=== PATIENT | male | born 1945 | race Caucasian/White ===

== ENCOUNTER 2017-06-21 07:24 | Day surgery (SDC) | payer OTHER ==
[2017-06-21] MEDS ORDERED: D5 LR 1000 ML 1,000 ML IV ONE (07:36)
[2017-06-21] MEDS ORDERED: DIPRIVAN VIAL 20 ML ONE (09:38)
[2017-06-21 11:16] VITALS: BP 131/64
== END 2017-06-21 10:30 | disposition home or self-care (01) ==
LOC: SURG1 07:24
PROVIDERS: ATTEND Internal Medicine Gastroenterology
PROC: 0DB88ZX Excision of Small Intestine, Via Natural or Artificial Opening Endoscopic, Diagnostic (ICD-10-PCS; principal; 2017-06-21 13:00)
PROC: 0D757ZZ Dilation of Esophagus, Via Natural or Artificial Opening (ICD-10-PCS; principal; 2017-06-21 13:00)
PROC: 0DJ08ZZ Inspection of Upper Intestinal Tract, Via Natural or Artificial Opening Endoscopic (ICD-10-PCS; principal; 2017-06-21 13:00)
PROC: 0DB68ZX Excision of Stomach, Via Natural or Artificial Opening Endoscopic, Diagnostic (ICD-10-PCS; principal; 2017-06-21 13:00)
DX: R13.19 Other dysphagia (principal); R10.13 Epigastric pain; K21.9 Gastro-esophageal reflux disease without esophagitis; K25.9 Gastric ulcer, unspecified as acute or chronic, without hemorrhage or perforation; K20.8 Other esophagitis; K22.4 Dyskinesia of esophagus; K22.2 Esophageal obstruction
CPT/HCPCS: 99100; A4217; J3490; J7120

== ENCOUNTER 2017-11-22 09:18 | Day surgery (SDC) | payer OTHER ==
[2017-11-22] MEDS ORDERED: D5 LR 1000 ML 1,000 ML IV ONE (09:35)
[2017-11-22] MEDS ORDERED: DIPRIVAN VIAL 20 ML ONE (10:56)
[2017-11-22 13:16] VITALS: BP 142/79
== END 2017-11-22 11:30 | disposition home or self-care (01) ==
LOC: SURG1 09:18
PROVIDERS: ATTEND Internal Medicine Gastroenterology
PROC: 0DJ08ZZ Inspection of Upper Intestinal Tract, Via Natural or Artificial Opening Endoscopic (ICD-10-PCS; principal; 2017-11-22 13:30)
PROC: 0DB68ZX Excision of Stomach, Via Natural or Artificial Opening Endoscopic, Diagnostic (ICD-10-PCS; principal; 2017-11-22 13:30)
PROC: 0D757ZZ Dilation of Esophagus, Via Natural or Artificial Opening (ICD-10-PCS; principal; 2017-11-22 13:30)
DX: R13.19 Other dysphagia (principal); R10.13 Epigastric pain; K21.9 Gastro-esophageal reflux disease without esophagitis; K22.2 Esophageal obstruction; K22.4 Dyskinesia of esophagus; K29.60 Other gastritis without bleeding
CPT/HCPCS: 99100; A4217; J3490; J7120

== ENCOUNTER 2023-06-10 15:27 | Observation (INO) ==
--- NOTE | 2023-06-10 15:58 | EKG ---
Test Reason : elevated blood pressure, sob Blood Pressure : */* mmHG Vent. Rate : 80 BPM Atrial Rate : 80 BPM P-R Int : 174 ms QRS Dur : 98 ms QT Int : 396 ms P-R-T Axes : 50 39 3 degrees QTc Int : 456 ms Sinus rhythm with marked sinus arrhythmia with frequent and consecutive premature ventricular complex es Nonspecific T wave abnormality Abnormal ECG When compared with ECG of 02-DEC-2022 12:43, premature ventricular complexes are now present Vent. rate has increased BY 35 BPM Confirmed by Mario Bell (4) on 06/11/2023 8:04:47 AM Referred By: Confirmed By: Mario Bell
[2023-06-10] MEDS ORDERED: TYLENOL 500 MG TAB EXTRA STRENGTH PO ONE ×2 (16:00→16:17)
--- NOTE | 2023-06-10 16:15 | DR.WEAKNES ---
HPI Time Seen Time Seen by Provider: 06/10/23 15:50 Primary Care Physician Primary Care Physician: Narda Galindo Complaints Chief Complaint Doctors Comments: Patuient went to the grocery at 10:00am today and began bringing in groceries.Patient sat down outside. Son was told that he began to feel hot. Patient began to stare and did not move.ingot stripper were called to the house by a family member who went to visit and found patient. Patient's 02 sat was 89% RA and 2L 02 NC were applied. Patient denies:head injury,neck pain,back pain,chest pain,abdl pain,extremity weakness,extremity pain Chief Complaint:: EMS called out for AMS and generalized weakness. ON seen he had a oxygen sat of 89 and 2 L applied on nasal cannula, elevated blood pressure of 178/87 manually and enroute 194/86. Patient verbally responds and oriented times 3 and every few mins patient stops talking and holds a blank stare and responds after name is called. Source History Provided: Patient Mode of Arrival Mode of Arrival: EMS Timing Onset of Chief Complaint: 06/10/23 Symptom Onset: Unknown Context Stroke Symptoms: None PMH PMH Past Medical History: Yes Past Medical History: Coronary Artery Disease, Diabetes, Dyslipidemia, Hypert ension and MT Past Surgical History: Yes Surgical History: Ortho Surgery and Other Family History History of Family Medical Conditions: Yes Family Medical History: MT, Coronary Artery Disease, Sudden Cardiac and Hypertension Social History Does patient currently use any type of tobacco product: No Type of Tobacco Use: None Does any household member use tobacco: No Alcohol Use: None Do you use any recreational Drugs:: No Lives With: Spouse Lives Where: Home Travel Risk Coronavirus risk:travel/contact w/high risk person: Yes Has patient experienced Coronavirus symptoms: Yes Coronavirus symptoms experienced: Fever, Coughing and Shortness of Breath Infectious screening In the last 2 months have you had wt loss of >10#?: NO Have you had fever, night sweats or hemotysis?: No Have you traveled outside the country in the last 6 months?: No Isolation: Standard ROS Review of Systems Constitutional: No Symptoms Reported Eyes: No Symptoms Reported ENTM: No Symptoms Reported Respiratoy: Short of Breath Cardiovascular: negative Chest Pain Gastrointestinal/Abdominal: negative Abdominal Pain, Nausea or Vomiting Genitourinary: No Symptoms Reported Neurological: Weakness, Dizziness and Other (tremor left upper extremity); negative Headache Musculoskeletal: No Symptoms Reported Integumentary: No Symptoms Reported Hematologic/Lymphatic: No Symptoms Reported Endocrine: No Symptoms Reported Psychiatric: No Symptoms Reported All Other Systems: Reviewed and Negative Unable to Obtain Due To: Altered mental status PE Vital Signs Vitals: Vital Signs Temperature 98.1 F Temperature 99.9 F Pulse Rate 66 Pulse Rate 66 Pulse Rate 66 Pulse Rate 67 Pulse Rate 62 Pulse Rate 67 Pulse Rate 69 Pulse Rate 70 Pulse Rate 66 Pulse Rate 67 Pulse Rate 68 Pulse Rate 75 Pulse Rate 71 Pulse Rate 70 Pulse Rate 73 Pulse Rate 80 Pulse Rate 80 Pulse Rate 80 Pulse Rate 74 Pulse Rate 70 Pulse Rate 78 Respiratory Rate 19 Respiratory Rate 19 Respiratory Rate 19 Respiratory Rate 20 Respiratory Rate 18 Respiratory Rate 21 Respiratory Rate 19 Respiratory Rate 23 Respiratory Rate 22 Respiratory Rate 23 Respiratory Rate 21 Respiratory Rate 24 Respiratory Rate 31 Respiratory Rate 28 Respiratory Rate 45 Respiratory Rate 27 Respiratory Rate 19 Respiratory Rate 22 Respiratory Rate 23 Respiratory Rate 21 Respiratory Rate 23 Blood Pressure 169/80 Blood Pressure 181/75 Blood Pressure 171/74 Blood Pressure 171/74 Blood Pressure 175/75 Blood Pressure 192/83 Blood Pressure 209/94 Blood Pressure 213/95 Blood Pressure 194/84 O2 Sat by Pulse Oximetry 97 O2 Sat by Pulse Oximetry 92 O2 Sat by Pulse Oximetry 96 O2 Sat by Pulse Oximetry 97 O2 Sat by Pulse Oximetry 96 O2 Sat by Pulse Oximetry 98 O2 Sat by Pulse Oximetry 93 O2 Sat by Pulse Oximetry 96 O2 Sat by Pulse Oximetry 98 O2 Sat by Pulse Oximetry 100 O2 Sat by Pulse Oximetry 97 O2 Sat by Pulse Oximetry 96 O2 Sat by Pulse Oximetry 90 O2 Sat by Pulse Oximetry 95 O2 Sat by Pulse Oximetry 95 O2 Sat by Pulse Oximetry 96 O2 Sat by Pulse Oximetry 95 General Limitations: No Limitations General Appearance: Alert and In No Apparent Distress Head Head Exam: Normal Inspection Eyes Eye exam: Normal Appearance Eyelids: Normal Inspection: Bilateral Pupils: Regular, Round: Bilateral Sclera/Conjunctival: Normal Inspection: Bilateral Anterior Chamber: Normal Inspection: Bilateral ENT ENT Exam: Mucous Membranes Dry Mouth Exam: Normal Inspection Throat Exam: Normal Inspection Neck Neck Exam: Normal Inspection Chest Chest Inspection: Normal Inspection Respiratory Respiratory Exam: Normal Lung Sounds Bilat Respiratory Exam: Bilateral: Clear to Auscultation Cardiovascular Cardiovascular Exam: Regular Rate and Normal Rhythm Abdominal Exam Abdominal Exam: Normal Inspection, Normal Bowel Sounds and Soft Extremities Extremities Exam: Normal Inspection Back Back Exam: Normal Inspection Neurologic Neurological Exam: Alert and Oriented X3 Psychiatric Psychiatric Exam: Normal Affect and Normal Mood Skin Skin Exam: Warm, Dry, Intact and Normal Color MDM Differential Diagnosis Differential Diagnosis: CVA, DKA, Electrolyte Disorder, Mass Lesion, SAH and TIA COURSE Treatment Treatment: 16:40After Patient evaluated in a monitored room.Patient had bp 214/90's and was given hydralazine 10mg iv.16:57 He suddenly developed a HR 144 Afib and rapidly converted back to NSR. Patient has an 02sat 95-100% on 2L 02 per nasal cannula. Patient wilth EKG #1 sinus rhythm with nonspecific twave changes and frequent pvcs and troponin is 14.5. Patient's EKG #2 NSR nonspecific t wave changes and troponin #2 is 20.0. Discussed case with Dr Nguyen who has accepted patient to his service for treatment of: Altered mental Status,Hypoxia,Dehydration,Hypertensive emergency ROR Labs Reviewed Laboratory Results Reviewed?: Yes 06/10/23 16:36 06/10/23 16:36 Laboratory: WBC 10.3 X10^3/uL (3.6-10.0) H 06/10/23 16:36 RBC 4.42 X10^6/uL (4.7-6.0) L 06/10/23 16:36 Hgb 13.2 g/dL (13.5-18.0) L 06/10/23 16:36 Hct 39.0 % (42.0-54.0) L 06/10/23 16:36 MCV 88.3 fL (80.0-100.0) 06/10/23 16:36 MCH 29.8 pg (27.0-34.0) 06/10/23 16:36 MCHC 33.7 g/dL (33.0-35.0) 06/10/23 16:36 RDW 14.7 % (11.6-16.5) 06/10/23 16:36 Plt Count 119 X10^3/uL (150.0-450.0) L 06/10/23 16:36 MPV 8.8 fL (7.4-11.0) 06/10/23 16:36 Neut % (Auto) 88.7 % (42.0-75.0) H 06/10/23 16:36 Lymph % (Auto) 4.7 % (21.0-51.0) L 06/10/23 16:36 [place] % (Auto) 6.2 % (0.0-13.0) 06/10/23 16:36 Eos % (Auto) 0.2 % (0.9-2.9) L 06/10/23 16:36 Baso % (Auto) 0.2 % (0.2-1.0) 06/10/23 16:36 Neut # (Auto) 9.2 x10^3/uL (2.2-4.8) H 06/10/23 16:36 Lymph # (Auto) 0.5 X10^3/uL (1.3-2.9) L 06/10/23 16:36 [place] # (Auto) 0.6 x10^3/uL (0.3-0.8) 06/10/23 16:36 Eos # (Auto) 0.0 x10^3/uL (0.0-0.2) 06/10/23 16:36 Baso # (Auto) 0.0 X10^3/uL (0.0-0.1) 06/10/23 16:36 Absolute Nucleated RBC 0.0 /100WBC 06/10/23 16:36 Sodium 139 mmol/L (136-145) 06/10/23 16:36 Corrected Sodium 139 mmol/L (136-145) 06/10/23 16:36 Potassium 3.7 mmol/L (3.5-5.1) 06/10/23 16:36 Chloride 103 mmol/L (98-107) 06/10/23 16:36 Carbon Dioxide 26.0 mmol/L (21-32) 06/10/23 16:36 BUN 20 mg/dL (7-18) H 06/10/23 16:36 Creatinine 1.42 mg/dL (0.70-1.30) H 06/10/23 16:36 Est GFR (MDRD) Af Amer > 60 (>60) 06/10/23 16:36 Est GFR (MDRD) Non-Af 51 (>60) L 06/10/23 16:36 Glucose 111 mg/dL (65-99) H 06/10/23 16:36 Lactic Acid 1.1 mmol/L (0.4-2.0) 06/10/23 16:36 Calcium 9.3 mg/dL (8.5-10.1) 06/10/23 16:36 Corrected Calcium TNP 06/10/23 16:36 Total Bilirubin 1.40 mg/dL (0.2-1.0) H 06/10/23 16:36 AST 18 Units/L (15-37) 06/10/23 16:36 ALT 10 Units/L (12-78) L 06/10/23 16:36 Alkaline Phosphatase 62 Units/L (46-116) 06/10/23 16:36 Creatine Kinase 50 Units/L (39-308) 06/10/23 16:36 Troponin I High Sens 20.0 ng/L (4.0-60.0) 06/10/23 19:00 C-Reactive Protein 53.00 mg/L (0-3.0) H 06/10/23 16:36 B-Natriuretic Peptide 760 pg/mL (0-79) H* 06/10/23 16:36 Total Protein 6.7 g/dL (6.4-8.2) 06/10/23 16:36 Albumin 3.9 g/dL (3.4-5.0) 06/10/23 16:36 Globulin 2.8 g/dL (2.5-4.5) 06/10/23 16:36 Albumin/Globulin Ratio 1.4 Ratio (1.1-2.1) 06/10/23 16:36 Amylase 24 Units/L (25-115) L 06/10/23 16:36 Lipase 31 Units/L (73-393) L 06/10/23 16:36 Specimen Type Clean catch urine 06/10/23 16:30 Urine Color Yellow (YELLOW) 06/10/23 16:30 Urine Appearance Clear (CLEAR) 06/10/23 16:30 Urine pH 6.0 (5.0 - 8.0) 06/10/23 16:30 Ur Specific [place] 1.015 (1.000-1.030) 06/10/23 16:30 Urine Protein 2+ (NEGATIVE) 06/10/23 16:30 Urine Glucose (UA) Negative (NEGATIVE) 06/10/23 16:30 Urine Ketones 2+ (NEGATIVE) 06/10/23 16:30 Urine Blood 2+ (NEGATIVE) 06/10/23 16:30 Urine Nitrite Negative (NEGATIVE) 06/10/23 16:30 Urine Bilirubin Negative (NEGATIVE) 06/10/23 16:30 Urine Urobilinogen Normal (NORMAL) 06/10/23 16:30 Ur Leukocyte Esterase Negative (NEGATIVE) 06/10/23 16:30 Urine RBC 0-2 /HPF (0-3) 06/10/23 16:30 Urine WBC None seen /HPF (0-5) 06/10/23 16:30 Ur Squamous Epith Cells Rare /HPF (NEGATIVE) 06/10/23 16:30 Urine Bacteria Trace /HPF (NEGATIVE) 06/10/23 16:30 Ur Culture Indicated? No/not indicated 06/10/23 16:30 SARS-CoV-2 (PCR) Negative (NEGATIVE) 06/10/23 16:30 Influenza Type A (PCR) Negative (NEGATIVE) 06/10/23 16:30 Influenza Type B (PCR) Negative (NEGATIVE) 06/10/23 16:30 RSV (PCR) Negative (NEGATIVE) 06/10/23 16:30 XRAY XRAY Interpreted by: Radiologist X-ray Results: HISTORY AMS, generalized weakness Altered mental status Noncontrast head CT examination. Comparison: [None]. Technique: Multiple axial images of the brain were obtained from the skull base to the vertex without administration of IV contrast. Findings: There is moderate sulcal and cisternal prominence as well as atherosclerotic change in the proximal intracranial carotid and vertebral arteries, which is not out of proportion to the patient's stated age. There is diffuse CT density alteration seen in the periventricular white matter of the high and mid-convexity, which is likely in the setting of small vessel disease and not out of proportion to the patient's stated age. There is no pathologic ventricular dilatation without evidence for hydrocephalus or herniation syndrome. No midline shift is evident. No acute intraparenchymal hemorrhage or mass can be identified. If there remains a strong concern for any intra-cranial neoplasm, then follow-up with CT or MR imaging of the brain would be more sensitive to exclude any intra-cranial mass lesion. No extra-axial fluid collections are seen. No alteration in the attenuation of the brain parenchyma can be identified to suggest acute or subacute ischemic change. However, if clinical symptoms are concerning for an acute CVA, then follow-up MRI with DWI sequencing is recommended. The extracranial structures [are unremarkable]. The sinuses and mastoids are clear. IMPRESSION: 1. No acute intracranial process or acute bleed identified. 2. Age-appropriate intra-cranial changes of advancing age. Electronically signed by: DELL WEEMS III (Jun 10, 2023 16:31:33) EKG Compared to prior EKG Dated: 06/10/23 Rate: 80 [place]: Normal Rhythm: PVCs (frequent PVC's) Block: AVB Opioid Opioid Risk Tool Age (Dannie box if 16-45): No History of Preadolescent Sexual Abuse: No Total: 0 Total Score Risk Category: Low Risk Copyright: [facility] predicting aberrant behaviors Discharge Plan Diagnosis Discharge Problem: Hypoxia, Hypertensive emergency, Acute dehydration, Altered mental status Discharge Plan Patient Disposition: ADMITTED INPATIENT Condition: Stable Prescriptions: No Action simvastatin 40 MG tablet 40 mg PO HS clonidine HCl 0.1 mg tablet 0.1 mg PO QDAY PRN bisoprolol-hydrochlorothiazide 10-6.25 mg tablet 1 tab PO QDAY aspirin [Aspir-81] 81 mg Tablet,Delayed Release (Dr/Ec) 81 mg PO DAILY metformin 500 mg tablet 500 mg PO BID Patient Comments: Patient stated he takes once a day donepezil [Aricept] 5 mg tablet 5 mg PO QDAY lisinopril 20 mg tablet 20 mg PO QDAY Patient Comments: Patient states he takes 10mg in am and 10mg HS potassium chloride 10 mEq tablet extended release 10 meq PO BID hydrocodone-acetaminophen 10-325 mg tablet 1 tab PO TID PRN terazosin 2 mg capsule 4 mg PO QDAY pantoprazole 40 mg tablet,delayed release (DR/EC) 40 mg PO QDAY gabapentin 300 mg capsule 600 mg PO DAILY hydrochlorothiazide 25 mg tablet 25 mg PO QDAY Health Concerns: Post Hospitalization: new medications and changes needed to prevent readmission or further decline. Pt educated and given instructions on all concerns. Plan of Treatment: Continue with present treatment and follow up plan. Pt is to keep follow up appointment as instructed and take medications as ordered. Orders to Discharge Patient Discharge Orders: Transfer (Routine); Ordered 06/10/23 Ordered By: Alexa Rm Follow ups/Referrals Follow ups/Referrals: ELA BENITO [Primary Care Provider] - 3 days Instructions Stand Alone Forms: Post Hospital Follow Up Care ADDITIONAL NOTES Additional Notes Additional Notes: EKG #2 HR 64 RHYTHM NSR nonspecific t wave changes
[2023-06-10] MEDS ORDERED: APRESOLINE INJ 20 MG VIAL IVP ONE (16:33)
--- NOTE | 2023-06-10 16:33 | CT ---
HISTORYAMS, generalized weaknessAltered mental statusNoncontrast head CT examination.Comparison: [None].Technique:Multiple axial images of the brain were obtained from the skull base to the vertex without administration of IV contrast.Findings: There is moderate sulcal and cisternal prominence as well as atherosclerotic change in the proximal intracranial carotid and vertebral arteries, which is not out of proportion to the patient's stated age. There is diffuse CT density alteration seen in the periventricular white matter of the high and mid-convexity, which is likely in the setting of small vessel disease and not out of proportion to the patient's stated age. There is no pathologic ventricular dilatation without evidence for hydrocephalus or herniation syndrome. No midline shift is evident. No acute intraparenchymal hemorrhage or mass can be identified. If there remains a strong concern for any intra-cranial neoplasm, then follow-up with CT or MR imaging of the brain would be more sensitive to exclude any intra-cranial mass lesion. No extra-axial fluid collections are seen. No alteration in the attenuation of the brain parenchyma can be identified to suggest acute or subacute ischemic change. However, if clinical symptoms are concerning for an acute CVA, then follow-up MRI with DWI sequencing is recommended. The extracranial structures [are unremarkable]. The sinuses and mastoids are clear.IMPRESSION:1. No acute intracranial process or acute bleed identified.2. Age-appropriate intra-cranial changes of advancing age.Electronically signed by: DELL WEEMS III (Jun 10, 2023 16:31:33)
[2023-06-10] MEDS ORDERED: APRESOLINE INJ 20 MG VIAL ONE (16:36)
[2023-06-10 16:48] LABS: BILIRUBIN,URINE NEGATIVE (NEGATIVE); BLOOD/HEMOGLOBIN,URINE 2+ (NEGATIVE); GLUCOSE, URINE NEGATIVE (NEGATIVE); KETONES,URINE 2+ (NEGATIVE); LEUKOCYTE ESTERASE ,URINE NEGATIVE (NEGATIVE); NITRITES,URINE NEGATIVE (NEGATIVE); PROTEIN,URINE 2+ (NEGATIVE); UROBILINOGEN,URINE NORMAL (NORMAL)
[2023-06-10 16:56] LABS: APPEARANCE,URINE CLEAR (CLEAR); BACTERIA,URINE TRACE /HPF (NEGATIVE); COLOR,URINE YELLOW (YELLOW); RBC,URINE 0-2 /HPF (0-3); SQUAMOUS EPITHELIAL CELL,UR RARE /HPF (NEGATIVE)
[2023-06-10 16:59] LABS: BASOPHILS % (AUTO) 0.2 % (0.2-1.0); EOSINOPHILS % (AUTO) 0.2 % (0.9-2.9); HEMOGLOBIN 13.2 g/dL (13.5-18.0); LYMPHOCYTES # (AUTO) 0.5 X10^3/uL (1.3-2.9); LYMPHOCYTES % (AUTO) 4.7 % (21.0-51.0); MEAN CORPUSCULAR HEMOGLOBIN 29.8 pg (27.0-34.0); MEAN CORPUSCULAR HGB CONC 33.7 g/dL (33.0-35.0); MEAN CORPUSCULAR VOLUME 88.3 fL (80.0-100.0); MEAN PLATELET VOLUME 8.8 fL (7.4-11.0); MONOCYTES # (AUTO) 0.6 x10^3/uL (0.3-0.8); MONOCYTES % (AUTO) 6.2 % (0.0-13.0); NEUTROPHILS # (AUTO) 9.2 x10^3/uL (2.2-4.8); NEUTROPHILS % (AUTO) 88.7 % (42.0-75.0); PLATELET COUNT 119 X10^3/uL (150.0-450.0); RED BLOOD COUNT 4.42 X10^6/uL (4.7-6.0); RED CELL DISTRIBUTION WIDTH 14.7 % (11.6-16.5); WHITE BLOOD COUNT 10.3 X10^3/uL (3.6-10.0)
[2023-06-10 17:17] LABS: LACTIC ACID 1.1 mmol/L (0.4-2.0)
[2023-06-10 17:23] LABS: ALANINE AMINOTRANSFERASE 10 Units/L (12-78); ALBUMIN 3.9 g/dL (3.4-5.0); ALKALINE PHOSPHATASE 62 Units/L (46-116); AMYLASE 24 Units/L (25-115); ASPARTATE AMINO TRANSFERASE 18 Units/L (15-37); BLOOD UREA NITROGEN 20 mg/dL (7-18); CALCIUM 9.3 mg/dL (8.5-10.1); CHLORIDE 103 mmol/L (98-107); COR NA(FOR HYPERGLY) 139 mmol/L (136-145); CREATINE KINASE 50 Units/L (39-308); CREATININE 1.42 mg/dL (0.70-1.30); GLUCOSE 111 mg/dL (65-99); LIPASE 31 Units/L (73-393); POTASSIUM 3.7 mmol/L (3.5-5.1); SODIUM 139 mmol/L (136-145); TOTAL PROTEIN 6.7 g/dL (6.4-8.2); eGFR NON BLACK RACES 51 (>60)
--- NOTE | 2023-06-10 19:07 | EKG ---
Test Reason : altered mental status Blood Pressure : */* mmHG Vent. Rate : 64 BPM Atrial Rate : 64 BPM P-R Int : 170 ms QRS Dur : 108 ms QT Int : 422 ms P-R-T Axes : 66 36 14 degrees QTc Int : 435 ms Normal sinus rhythm Cannot rule out Anterior infarct , age undetermined Abnormal ECG When compared with ECG of 10-JUN-2023 15:55, (Unconfirmed) premature ventricular complexes are no longer present Confirmed by Mario Bell (4) on 06/11/2023 8:04:33 AM Referred By: Confirmed By: Mario Bell
--- NOTE | 2023-06-10 19:37 | RAD ---
HISTORYfeverSTUDYCHEST, 1 VIEWCOMPARISONFebruary 2022 and January 17, 2023TECHNIQUEChest radiographic imaging, AP portable projection, 1 imageFINDINGSNo cardiomegaly.Small left pleural effusion with adjacent airspace disease; as seen on the previous exams.No new focal airspace disease identified.No pneumothorax.No acute osseous abnormality.IMPRESSIONSmall left pleural effusion with adjacent airspace disease; as seen on the previous exams. No new focal airspace disease identified.Electronically signed by: Rashaun Frost (Jun 10, 2023 19:35:58)
[2023-06-10] MEDS ORDERED: CATAPRES TAB 0.1 MG PO PRN (20:18)
[2023-06-10] MEDS: MICRO K EXTEN CAP 10 MEQ PO SCH (21:59)
[2023-06-10] MEDS: NORCO 10/325 TAB PO PRN (22:00)
[2023-06-10] MEDS: ZOCOR TAB 40 MG PO SCH (22:00)
[2023-06-11 01:22] VITALS: BMI 28.0
[2023-06-11 06:14] LABS: BASOPHILS % (AUTO) 0.3 % (0.2-1.0); EOSINOPHILS % (AUTO) 0.2 % (0.9-2.9); HEMOGLOBIN 12.5 g/dL (13.5-18.0); LYMPHOCYTES # (AUTO) 0.7 X10^3/uL (1.3-2.9); LYMPHOCYTES % (AUTO) 7.2 % (21.0-51.0); MEAN CORPUSCULAR HEMOGLOBIN 29.8 pg (27.0-34.0); MEAN CORPUSCULAR HGB CONC 33.7 g/dL (33.0-35.0); MEAN CORPUSCULAR VOLUME 88.4 fL (80.0-100.0); MEAN PLATELET VOLUME 9.2 fL (7.4-11.0); MONOCYTES # (AUTO) 0.6 x10^3/uL (0.3-0.8); MONOCYTES % (AUTO) 6.6 % (0.0-13.0); NEUTROPHILS # (AUTO) 8.4 x10^3/uL (2.2-4.8); NEUTROPHILS % (AUTO) 85.7 % (42.0-75.0); PLATELET COUNT 114 X10^3/uL (150.0-450.0); RED BLOOD COUNT 4.18 X10^6/uL (4.7-6.0); RED CELL DISTRIBUTION WIDTH 14.5 % (11.6-16.5); WHITE BLOOD COUNT 9.8 X10^3/uL (3.6-10.0)
[2023-06-11 06:26] LABS: ALANINE AMINOTRANSFERASE 7 Units/L (12-78); ALBUMIN 3.1 g/dL (3.4-5.0); ALKALINE PHOSPHATASE 53 Units/L (46-116); ASPARTATE AMINO TRANSFERASE 19 Units/L (15-37); BLOOD UREA NITROGEN 18 mg/dL (7-18); CARBON DIOXIDE 26.6 mmol/L (21-32); CHLORIDE 104 mmol/L (98-107); COR CA(FOR HYPOALB) 9.7 mg/dL (8.5-10.1); CREATININE 1.23 mg/dL (0.70-1.30); GLUCOSE 100 mg/dL (65-99); POTASSIUM 3.6 mmol/L (3.5-5.1); SODIUM 139 mmol/L (136-145); TOTAL PROTEIN 5.9 g/dL (6.4-8.2); eGFR NON BLACK RACES > 60 (>60)
[2023-06-11] MEDS ORDERED: CONSULT PHARMACY - POTASSIUM & MAGNESIUM XX SCH ×2 (07:00)
[2023-06-11] MEDS ORDERED: ZESTRIL TAB 20 MG ONE (08:08)
[2023-06-11] MEDS: MAG-OX TAB PO SCH ×2 (08:20→09:39)
[2023-06-11] MEDS: PROTONIX TAB 40 MG PO SCH (08:20)
[2023-06-11] MEDS: HYDROCHLOROTHIAZIDE 25 MG TAB PO SCH (08:20)
[2023-06-11] MEDS: ASPIRIN EC 81 MG PO SCH (08:21)
[2023-06-11] MEDS: HYTRIN PO SCH (08:21)
[2023-06-11] MEDS: MICRO K EXTEN CAP 10 MEQ PO SCH ×2 (08:21→20:23)
[2023-06-11] MEDS: ARICEPT TAB 5 MG PO SCH (08:21)
[2023-06-11] MEDS: ZESTRIL TAB 20 MG PO SCH (08:22)
[2023-06-11] MEDS: ZEBETA TAB 5 MG PO SCH (08:22)
[2023-06-11] MEDS: NEURONTIN CAP 300 MG PO SCH (08:22)
[2023-06-11] MEDS ORDERED: K-DUR TAB 20 MEQ PO SCH (09:00)
[2023-06-11] MEDS: LOVENOX INJ 40 MG SYR SC SCH (10:38)
--- NOTE | 2023-06-11 13:42 | RAD ---
HISTORYPneumonia, altered mental statusSTUDYAP chest [id number] heart remains enlarged. The rebel are prominent and there is now indistinctness of the rebel with diffuse bilateral perihilar interstitial and some alveolar infiltrates most consistent with cardiogenic or noncardiogenic pulmonary edema. No definite pleural effusions are identified. Bony thorax is unremarkable.IMPRESSIONCardiomegaly with congestive heart failure in the form of pulmonary edema which could be cardiogenic or noncardiogenic in origin.Electronically signed by: GHASSAN ROWAN (Jun 11, 2023 13:41:33)
[2023-06-11] MEDS: ROCEPHIN VIAL 1 GRAM 1 G in NS 100 ML IV 100 ML IV SCH (13:43)
[2023-06-11] MEDS ORDERED: NS 1,000 ML IV 1,000 ML IV SCH (14:00)
[2023-06-11] MEDS: DUONEB 0.5 MG/3 MG (3 mL) NEB SCH ×2 (16:29→21:10)
[2023-06-11] MEDS: PULMICORT NEB TX 0.5 MG NEB SCH ×2 (16:31→21:10)
[2023-06-11] MEDS: LASIX IVP SCH (16:39)
[2023-06-11] MEDS: NORCO 10/325 TAB PO PRN (20:21)
[2023-06-11] MEDS: ZOCOR TAB 40 MG PO SCH (20:23)
--- NOTE | 2023-06-12 06:23 | RAD ---
HISTORYCongestive heart failureSTUDYChest AP [id number] t is enlarged. Previously noted congestive heart failure no longer present. No acute alveolar infiltrates are identified. Minimal left pleural effusion present. Bony thorax is unremarkable.IMPRESSIONCardiomegaly without congestive heart failure on today's examinationNo acute infiltratesMinimal left pleural effusionElectronically signed by: GHASSAN ROWAN (Jun 12, 2023 06:21:47)
[2023-06-12 06:37] LABS: BASOPHILS % (AUTO) 0.2 % (0.2-1.0); EOSINOPHILS % (AUTO) 0.5 % (0.9-2.9); HEMATOCRIT 38.6 % (42.0-54.0); LYMPHOCYTES # (AUTO) 0.7 X10^3/uL (1.3-2.9); LYMPHOCYTES % (AUTO) 8.9 % (21.0-51.0); MEAN CORPUSCULAR HEMOGLOBIN 29.6 pg (27.0-34.0); MEAN CORPUSCULAR HGB CONC 33.6 g/dL (33.0-35.0); MEAN CORPUSCULAR VOLUME 88.2 fL (80.0-100.0); MEAN PLATELET VOLUME 9.7 fL (7.4-11.0); MONOCYTES # (AUTO) 0.7 x10^3/uL (0.3-0.8); MONOCYTES % (AUTO) 9.2 % (0.0-13.0); NEUTROPHILS # (AUTO) 6.6 x10^3/uL (2.2-4.8); NEUTROPHILS % (AUTO) 81.2 % (42.0-75.0); PLATELET COUNT 123 X10^3/uL (150.0-450.0); RED BLOOD COUNT 4.38 X10^6/uL (4.7-6.0); RED CELL DISTRIBUTION WIDTH 14.6 % (11.6-16.5); WHITE BLOOD COUNT 8.1 X10^3/uL (3.6-10.0)
[2023-06-12 07:09] LABS: ALANINE AMINOTRANSFERASE 6 Units/L (12-78); ALBUMIN 3.4 g/dL (3.4-5.0); ALKALINE PHOSPHATASE 63 Units/L (46-116); ASPARTATE AMINO TRANSFERASE 13 Units/L (15-37); BLOOD UREA NITROGEN 21 mg/dL (7-18); CALCIUM 9.6 mg/dL (8.5-10.1); CARBON DIOXIDE 29.6 mmol/L (21-32); CHLORIDE 101 mmol/L (98-107); COR NA(FOR HYPERGLY) 141 mmol/L (136-145); CREATININE 1.49 mg/dL (0.70-1.30); GLUCOSE 127 mg/dL (65-99); POTASSIUM 3.1 mmol/L (3.5-5.1); SODIUM 140 mmol/L (136-145); TOTAL PROTEIN 6.7 g/dL (6.4-8.2); eGFR NON BLACK RACES 48 (>60)
[2023-06-12] MEDS ORDERED: ZESTRIL TAB 20 MG ONE (07:27)
[2023-06-12 07:58] VITALS: RESP 20
[2023-06-12] MEDS ORDERED: CONSULT PHARMACY - POTASSIUM & MAGNESIUM XX SCH (08:00)
[2023-06-12] MEDS: ROCEPHIN VIAL 1 GRAM 1 G in NS 100 ML IV 100 ML IV SCH (08:07)
[2023-06-12] MEDS: LASIX IVP SCH (08:08)
[2023-06-12] MEDS: LOVENOX INJ 40 MG SYR SC SCH (08:08)
[2023-06-12] MEDS: NEURONTIN CAP 300 MG PO SCH (08:09)
[2023-06-12] MEDS: ARICEPT TAB 5 MG PO SCH (08:09)
[2023-06-12] MEDS: MICRO K EXTEN CAP 10 MEQ PO SCH (08:09)
[2023-06-12] MEDS: PROTONIX TAB 40 MG PO SCH (08:10)
[2023-06-12] MEDS: ZEBETA TAB 5 MG PO SCH (08:10)
[2023-06-12] MEDS: HYDROCHLOROTHIAZIDE 25 MG TAB PO SCH (08:10)
[2023-06-12] MEDS: ASPIRIN EC 81 MG PO SCH (08:10)
[2023-06-12] MEDS: ZESTRIL TAB 20 MG PO SCH (08:10)
[2023-06-12] MEDS ORDERED: ROBITUSSIN DM PO PRN (08:47)
[2023-06-12] MEDS ORDERED: SOLU-Medrol 40 MG VIAL IVP ONE (08:47)
[2023-06-12] MEDS: DUONEB 0.5 MG/3 MG (3 mL) NEB SCH ×3 (09:12→12:21)
[2023-06-12] MEDS: PULMICORT NEB TX 0.5 MG NEB SCH (09:12)
[2023-06-12] MEDS: HYTRIN PO SCH (10:03)
[2023-06-12] MEDS: K-DUR TAB 20 MEQ PO SCH ×2 (12:00→13:13)
[2023-06-12] MEDS ORDERED: NS + KCL 20 MEQ/L 1,000 ML IV SCH (12:00)
[2023-06-12 12:05] VITALS: BP 122/59; PULSE 71; TEMP 99; O2SAT 95
[2023-06-12] MEDS ORDERED: K-DUR TAB 20 MEQ PO SCH (13:00)
== END 2023-06-12 13:50 | disposition home or self-care (01) ==
LOC: ER 15:27 → MED/SURG 15:27
PROVIDERS: ADMIT Family Medicine; ATTEND Internal Medicine

== ENCOUNTER 2025-01-01 21:17 | Inpatient (IN) ==
--- NOTE | 2025-01-01 21:37 | DR.ABDMALE ---
HPI Time seen Time Seen by Provider: 01/01/25 21:29 HPI comment HPI Comment: Patient complains of midepigastric pain that started prior to arrival. Patient states he has an extensive cardiac history with history of A- fib and blood clots for which she takes a blood thinner. Patient states he also has a history of a brain bleed. Denies any chest pain or diaphoresis at this time. Denies nausea vomiting diarrhea or constipation. Admits to dyspnea on exertion over the last few months. Source History provided by:: Patient, EMS PMH PMH Past Medical History: CHF, Coronary Artery Disease, Diabetes, Dyslipidemia, Hypertension and [place] Past Surgical History: Yes Surgical History: Angioplasty/Stents and Other Family History Family Medical History: [place], Coronary Artery Disease, Sudden Cardiac and Hypertension Social History Do you use any recreational Drugs:: No ROS Review of Systems Constitutional: No Symptoms Reported Eyes: No Symptoms Reported ENTM: No Symptoms Reported Respiratoy: Short of Breath; negative Non-Productive Cough or Wheezing Cardiovascular: See HPI and Other (Dyspnea on exertion); negative Chest Pain, Edema, Palpitations or Syncope Gastrointestinal/Abdominal: No Symptoms Reported Genitourinary: No Symptoms Reported Neurological: No Symptoms Reported Musculoskeletal: No Symptoms Reported Integumentary: No Symptoms Reported Hematologic/Lymphatic: No Symptoms Reported Endocrine: No Symptoms Reported Psychiatric: No Symptoms Reported All Other Systems: Reviewed and Negative PE Vital Signs Vital Signs: Temp Pulse Resp BP Pulse Ox O2 Del Method 01/02/25 00:16 142/65 01/02/25 00:16 98 H 42 H 01/02/25 00:15 103 H 42 H 01/02/25 00:02 159/74 01/02/25 00:02 107 H 43 H 01/02/25 00:00 102 H 43 H 01/01/25 23:30 201/116 01/01/25 23:30 98 H 36 H 94 L 01/01/25 23:16 202/118 01/01/25 23:16 92 H 37 H 95 01/01/25 23:15 92 H 36 H 01/01/25 23:01 199/89 01/01/25 23:01 92 H 35 H 89 L 01/01/25 23:00 98 H 31 H 90 L 01/01/25 22:46 95 H 28 H 83 L 01/01/25 22:46 217/104 01/01/25 22:46 217/104 01/01/25 22:45 96 H 30 H 85 L 01/01/25 22:31 95 H 41 H 90 L 01/01/25 22:31 210/109 01/01/25 22:30 90 33 H 84 L 01/01/25 22:15 213/101 01/01/25 22:15 96 H 34 H 94 L 01/01/25 22:10 102 H 38 H 88 L 01/01/25 22:10 198/95 01/02/25 01:33 20 01/01/25 22:54 20 01/01/25 22:17 18 01/01/25 22:17 22 01/01/25 22:04 94 H 36 H 01/01/25 22:04 208/112 01/01/25 21:45 206/118 01/01/25 21:45 94 H 31 H 95 01/01/25 21:32 208/117 01/01/25 21:32 93 H 37 H 98 01/01/25 21:32 97.6 F 98 H 20 138/113 97 Nasal Cannula General Limitations: No Limitations General Appearance: Alert and In No Apparent Distress Head Head Exam: Normal Inspection Eyes Eye exam: Normal Appearance ENT ENT Exam: Normal Exam Neck Neck Exam: Normal Inspection Chest Chest Inspection: Normal Inspection Respiratory Respiratory Exam: Other (Decreased breath sounds on lung bases bilaterally) Cardiovascular Cardiovascular Exam: Regular Rate and Normal Rhythm Abdominal Exam Abdominal Exam: Normal Inspection, Normal Bowel Sounds, Soft and Tenderness (Midepigastric tenderness); negative Distention, Guarding, Rebound or Rigidity Rectal Rectal Exam: Deferred Back Back Exam: Normal Inspection Extremeties Extremities Exam: Normal Inspection Exam: Male: Deferred Neurologic Neurological Exam: Alert and Oriented X3 Psychiatric Psychiatric Exam: Normal Affect and Normal Mood Skin Skin Exam: Warm, Dry, Intact and Normal Color COURSE Treatment Treatment: Patient's pain finally improved after 4 mg of morphine, Dilaudid and GERD medication. Discussed results of workup. Patient maintaining O2 sat on 2 L nasal cannula. At this point suspect referred pain from pneumonia and CHF exacerbation. Consultation Called: 02:26 Consultation Comments: Discussed case with Dr. Barrientos and she is agreeable to admission ROR Labs Reviewed 01/01/25 21:40 01/01/25 21:40 Laboratory: WBC 7.4 X10^3/uL (3.6-10.0) 01/01/25 21:40 RBC 4.62 X10^6/uL (4.7-6.0) L 01/01/25 21:40 Hgb 12.9 g/dL (13.5-18.0) L 01/01/25 21:40 Hct 39.1 % (42.0-54.0) L 01/01/25 21:40 MCV 84.7 fL (80.0-100.0) 01/01/25 21:40 MCH 28.0 pg (27.0-34.0) 01/01/25 21:40 MCHC 33.1 g/dL (33.0-35.0) 01/01/25 21: RDW 17.3 % (11.6-16.5) H 01/01/25 21:40 Plt Count 125 X10^3/uL (150.0-450.0) L 01/01/25 21: MPV 9.1 fL (7.4-11.0) 01/01/25 21:40 Neut % (Auto) 86.5 % (42.0-75.0) H 01/01/25 21:40 Lymph % (Auto) 8.2 % (21.0-51.0) L 01/01/25 21:40 [place] % (Auto) 5.0 % (0.0-13.0) 01/01/25 21:40 Eos % (Auto) 0.1 % (0.9-2.9) L 01/01/25: Baso % (Auto) 0.2 % (0.2-1.0) 01/01/25 21:40 Neut # (Auto) 6.4 x10^3/uL (2.2-4.8) H 01/01/25 21:40 Lymph # (Auto) 0.6 X10^3/uL (1.3-2.9) L 01/01/25 21:40 [place] # (Auto) 0.4 x10^3/uL (0.3-0.8) 01/01/25 21:40 Eos # (Auto) 0.0 x10^3/uL (0.0-0.2) 01/01/25 21:40 Baso # (Auto) 0.0 X10^3/uL (0.0-0.1) 01/01/25 21:40 Absolute Nucleated RBC 0.1 /100WBC 01/01/25 21:40 D-Dimer 1.73 ug/ml (0.0-0.57) H 01/01/25 21:40 Sodium 144 mmol/L (136-145) 01/01/25 21:40 Corrected Sodium 147 mmol/L (136-145) H 01/01/25 21:40 Potassium 3.7 mmol/L (3.5-5.1) 01/01/25 21:40 Chloride 105 mmol/L (98-107) 01/01/25 21:40 Carbon Dioxide 28.1 mmol/L (21-32) 01/01/25 21:40 BUN 23 mg/dL (7-18) H 01/01/25 21:40 Creatinine 1.31 mg/dL (0.70-1.30) H 01/01/25 21:40 Est GFR (MDRD) Af Amer > 60 (>60) 01/01/25 21:40 Est GFR (MDRD) Non-Af 56 (>60) L 01/01/25 21:40 Glucose 221 mg/dL (65-99) H 01/01/25 21:40 Calcium 10.6 mg/dL (8.5-10.1) H 01/01/25 21:40 Corrected Calcium TNP 01/01/25 21:40 Magnesium 1.8 mg/dL (2.0-2.9) L 01/01/25 21:40 Total Bilirubin 0.90 mg/dL (0.2-1.0) 01/01/25 21:40 AST 18 Units/L (15-37) 01/01/25 21:40 ALT 16 Units/L (12-78) 01/01/25 21:40 Alkaline Phosphatase 87 Units/L (46-116) 01/01/25 21:40 Alkaline Phosphatase 87 Units/L (46-116) 01/01/25 21:40 Creatine Kinase 64 Units/L (39-308) 01/01/25 21:40 Troponin I High Sens 12.2 ng/L (4.0-60.0) 01/02/25 00:18 B-Natriuretic Peptide 457 pg/mL (0-79) H 01/01/25 21:40 Total Protein 7.4 g/dL (6.4-8.2) 01/01/25 21:40 Albumin 4.2 g/dL (3.4-5.0) 01/01/25 21:40 Globulin 3.2 g/dL (2.5-4.5) 01/01/25 21: Albumin/Globulin Ratio 1.3 Ratio (1.1-2.1) 01/01/25 21:40 Amylase 30 Units/L (25-115) 01/01/25 21:40 Lipase 19 Units/L (16-77) 01/01/25 21:40 Specimen Type Clean catch urine 01/01/25 22: Urine Color Pale yellow (YELLOW) 01/01/25 22: Urine Appearance Clear (CLEAR) 01/01/25 22: Urine pH 6.5 (5.0 - 8.0) 01/01/25 22: Ur Specific [place] 1.010 (1.000-1.030) 01/01/25 22: Urine Protein 2+ (NEGATIVE) 01/01/25 22: Urine Glucose (UA) 3+ (NEGATIVE) 01/01/25 22: Urine Ketones Negative (NEGATIVE) 01/01/25: Urine Blood 3+ (NEGATIVE) 01/01/25: Urine Nitrite Negative (NEGATIVE) 01/01/25 22: Urine Bilirubin Negative (NEGATIVE) 01/01/25 22: Urine Urobilinogen Normal (NORMAL) 01/01/25: Ur Leukocyte Esterase Negative (NEGATIVE) 01/01/25 22: Urine RBC 0-2 /HPF (0-3) 01/01/25 22:05 Urine WBC None seen /HPF (0-5) 01/01/25 22: Ur Squamous Epith Cells Rare /HPF (NEGATIVE) 01/01/25 22: Urine Bacteria Negative /HPF (NEGATIVE) 01/01/25: Ur Culture Indicated? No/not indicated 01/01/25 22: Opioid Opioid Risk Tool Age (Dannie box if 16-45): No History of Preadolescent Sexual Abuse: No Total: 0 Total Score Risk Category: Low Risk Copyright: Von MONTOYA predicting aberrant behaviors Discharge Plan Diagnosis Discharge Problem: Acute exacerbation of CHF (congestive heart failure), Bilateral pneumonia Discharge Plan Patient Disposition: ADMITTED INPATIENT Condition: Stable Prescriptions: No Action hydrocodone-acetaminophen 10-325 mg tablet 1 tab PO TID PRN (Reason: pain) clonidine HCl 0.1 mg Tablet 0.1 mg PO DAILY PRN bisoprolol-hydrochlorothiazide 5-6.25 mg tablet 1 tab PO QDAY aspirin 81 mg Tablet,Chewable 81 mg PO QDAY cyclobenzaprine 10 mg Tablet 10 mg PO BID metformin 500 mg Tablet 500 mg PO QDAY furosemide 40 mg tablet 40 mg PO QAM donepezil 5 mg tablet 5 mg PO QDAY simvastatin 40 mg tablet 40 mg PO QPM terazosin 2 mg capsule 4 mg PO QDAY pantoprazole 40 mg tablet,delayed release (DR/EC) 40 mg PO QDAY lisinopril 10 mg tablet 10 mg PO QDAY potassium chloride 10 mEq tablet,ER particles/crystals 10 meq PO DAILY Health Concerns: Post Hospitalization: new medications and changes needed to prevent readmission or further decline. Pt educated and given instructions on all concerns. Plan of Treatment: Continue with present treatment and follow up plan. Pt is to keep follow up appointment as instructed and take medications as ordered. Orders to Discharge Patient Discharge Orders: Transfer (Routine); Ordered 01/02/25 Ordered By: Angel Last Follow ups/Referrals Follow ups/Referrals: [facility],None [STAFF PHYSICIAN] - 3 days Instructions Stand Alone Forms: Find Help Web Site, Post Hospital Follow Up Care
--- NOTE | 2025-01-01 21:43 | EKG ---
Test Reason : AFIB Blood Pressure : */* mmHG Vent. Rate : 91 BPM Atrial Rate : * BPM P-R Int : * ms QRS Dur : 98 ms QT Int : 370 ms P-R-T Axes : * 59 13 degrees QTc Int : 455 ms Atrial fibrillation with premature ventricular or aberrantly conducted complexes Incomplete right bundle branch block Possible Anterior infarct , age undetermined Abnormal ECG When compared with ECG of 15-APR-2024 14:31, Nonspecific T wave abnormality, worse in Inferior leads Nonspecific T wave abnormality now evident in Anterolateral leads Confirmed by Simon Marley MD ([id number]) on 01/02/2025 7:21:54 AM Referred By: Confirmed By: Simon Marley MD
[2025-01-01 22:07] LABS: BASOPHILS % (AUTO) 0.2 % (0.2-1.0); EOSINOPHILS % (AUTO) 0.1 % (0.9-2.9); HEMATOCRIT 39.1 % (42.0-54.0); HEMOGLOBIN 12.9 g/dL (13.5-18.0); LYMPHOCYTES # (AUTO) 0.6 X10^3/uL (1.3-2.9); LYMPHOCYTES % (AUTO) 8.2 % (21.0-51.0); MEAN CORPUSCULAR HGB CONC 33.1 g/dL (33.0-35.0); MEAN CORPUSCULAR VOLUME 84.7 fL (80.0-100.0); MEAN PLATELET VOLUME 9.1 fL (7.4-11.0); MONOCYTES # (AUTO) 0.4 x10^3/uL (0.3-0.8); NEUTROPHILS # (AUTO) 6.4 x10^3/uL (2.2-4.8); NEUTROPHILS % (AUTO) 86.5 % (42.0-75.0); PLATELET COUNT 125 X10^3/uL (150.0-450.0); RED BLOOD COUNT 4.62 X10^6/uL (4.7-6.0); RED CELL DISTRIBUTION WIDTH 17.3 % (11.6-16.5); WHITE BLOOD COUNT 7.4 X10^3/uL (3.6-10.0)
[2025-01-01] MEDS ORDERED: MORPHINE SULFATE INJ 2 MG INJ ONE (22:12)
[2025-01-01] MEDS: ZOFRAN INJ 4 MG VIAL IVP ONE (22:16)
[2025-01-01] MEDS: LEVSIN/MAALOX/LIDOC VISC PO ONE (22:17)
[2025-01-01] MEDS: MORPHINE SULFATE INJ 2 MG INJ IVP ONE ×2 (22:17→22:54)
[2025-01-01 22:18] LABS: ALANINE AMINOTRANSFERASE 16 Units/L (12-78); ALBUMIN 4.2 g/dL (3.4-5.0); ALKALINE PHOSPHATASE 87 Units/L (46-116); AMYLASE 30 Units/L (25-115); ASPARTATE AMINO TRANSFERASE 18 Units/L (15-37); BLOOD UREA NITROGEN 23 mg/dL (7-18); CALCIUM 10.6 mg/dL (8.5-10.1); CARBON DIOXIDE 28.1 mmol/L (21-32); CHLORIDE 105 mmol/L (98-107); COR NA(FOR HYPERGLY) 147 mmol/L (136-145); CREATINE KINASE 64 Units/L (39-308); CREATININE 1.31 mg/dL (0.70-1.30); GLUCOSE 221 mg/dL (65-99); LIPASE 19 Units/L (16-77); MAGNESIUM 1.8 mg/dL (2.0-2.9); POTASSIUM 3.7 mmol/L (3.5-5.1); SODIUM 144 mmol/L (136-145); TOTAL PROTEIN 7.4 g/dL (6.4-8.2); eGFR NON BLACK RACES 56 (>60)
[2025-01-01 22:29] LABS: BILIRUBIN,URINE NEGATIVE (NEGATIVE); BLOOD/HEMOGLOBIN,URINE 3+ (NEGATIVE); GLUCOSE, URINE 3+ (NEGATIVE); KETONES,URINE NEGATIVE (NEGATIVE); LEUKOCYTE ESTERASE ,URINE NEGATIVE (NEGATIVE); NITRITES,URINE NEGATIVE (NEGATIVE); PH,URINE 6.5 (5.0 - 8.0); PROTEIN,URINE 2+ (NEGATIVE); UROBILINOGEN,URINE NORMAL (NORMAL)
--- NOTE | 2025-01-01 22:42 | CT ---
CT ABDOMEN AND PELVIS WITHOUT CONTRASTHISTORY:Upper abdominal painCOMPARISON:01/15/2024TECHNIQUE:Axial images were obtained of the abdomen and pelvis without IV contrast. Sagittal and coronal reformatted images were provided. All images were reviewed in a variety of windows and levels.RADIATION REDUCTION TECHNIQUE: Automated exposure control, adjustment of the mA or kV according to patient size, or iterative reconstruction techniques were used.FINDINGS:Please note that lack of IV contrast does limit evaluation of the soft tissues and vascular detail.The visualized lower lung zones shows persistent moderate-sized bilateral pleural effusions which are not significantly changed from prior examination. The heart size is within normal limits. 12 mm thick pericardial effusion is noted. This was not present on the prior study.The liver, spleen, pancreas, adrenal glands, and kidneys are grossly unremarkable. The gallbladder is grossly unremarkable. Exophytic cyst is again noted involving the left kidney.There is no evidence of stones or signs of obstructive uropathy.The stomach, small bowel, and colon are grossly unremarkable. A few scattered diverticula are seen without evidence of diverticulitis. There are no inflammatory changes in the right lower quadrant to suggest secondary signs of acute appendicitis.There is no evidence of retroperitoneal or mesenteric lymphadenopathy.The visualized bones demonstrate degenerative changes. There are no concerning lytic or blastic lesions identified.IMPRESSION:1. The visualized lower lung zones shows persistent moderate-sized bilateral pleural effusions which are not significantly changed from prior examination.2. 12 mm thick pericardial effusion is noted. This was not present on the prior study.3. No evidence of obstructive uropathy.THIS IS AN ELECTRONICALLY VERIFIED FINAL REPORT01/01/2025 10:39 PM - Electronically signed by Clarence Ro MD
[2025-01-01 22:43] LABS: APPEARANCE,URINE CLEAR (CLEAR); BACTERIA,URINE NEGATIVE /HPF (NEGATIVE); COLOR,URINE PALE YELLOW (YELLOW); RBC,URINE 0-2 /HPF (0-3); SQUAMOUS EPITHELIAL CELL,UR RARE /HPF (NEGATIVE)
[2025-01-01] MEDS: APRESOLINE INJ 20 MG VIAL IVP ONE (23:31)
[2025-01-01] MEDS ORDERED: PROTONIX INJ 40 MG VIAL ONE (23:35)
[2025-01-01] MEDS: PROTONIX INJ 40 MG VIAL IVP ONE (23:39)
[2025-01-02] MEDS: MAG-OX TAB PO ONE (00:18)
[2025-01-02] MEDS: PEPCID TAB 40 MG PO ONE (00:18)
[2025-01-02] MEDS: DILAUDID INJ IVP ONE (01:33)
[2025-01-02] MEDS: DILAUDID INJ IM ONE (01:46)
--- NOTE | 2025-01-02 01:47 | CT ---
EXAM: CT ANGIOGRAM CHEST WITH CONTRAST HISTORY: SOB, ELEVATED D DIMER ; [place], CAD, HTN, DM, CHF, AFIB SX: RIGHT SHOULDER, QAMAR KNEES, ANGIO/STENTS . COMPARISON: None. TECHNIQUE: Axial CT images were obtained through the chest after the intravenous administration of contrast. Cor onal and sagittal reformatted images were included. MIP images were also performed. Informed written consent was obtained from the patient prior to contrast administration. All CT scans at this facility use dose modulation, iterative reconstruction, and/or weight based dosi ng when appropriate to reduce radiation dose to as low as reasonably achievable. FINDINGS: VASCULAR FINDINGS: Aorta is normal in course and caliber without evidence of aneurysm, dissection, or other acute pathology. Mild atherosclerotic disease is present. HEART: Cardiac enlargement and small pericardial effusion. Reflux of contrast into the IVC consisten t with right cardiac failure/congestion. Scattered coronary artery calcification. SUPPORT DEVICES: None LYMPH NODES: No pathologically enlarged nodes. LUNGS AND PLEURA: Diffuse pulmonary edema with with widespread septal thickening ground-glass opaciti es throughout both lungs. Bilateral moderate pleural effusion with atelectasis. AIRWAYS: Normal UPPER ABDOMEN: Small amount of perihepatic ascites and periportal edema. BONES: Normal IMPRESSION: 1. No evidence for pulmonary embolism. 2. Diffuse pulmonary edema with with widespread septal thickening ground-glass opacities throughout b oth lungs. Bilateral moderate pleural effusion with atelectasis. 3. Cardiac enlargement and small pericardial effusion. Reflux of contrast into the IVC consistent wi th right cardiac failure/congestion. Scattered coronary artery calcification. 4. Small amount of perihepatic ascites and periportal edema. THIS IS AN ELECTRONICALLY VERIFIED FINAL REPORT 01/02/2025 1:44 AM - Electronically signed by Elton Vazquez MD
[2025-01-02] MEDS: TOPROL XL PO ONE (03:17)
[2025-01-02] MEDS: NS 1/2 1,000 ML IV 1,000 ML IV SCH (03:59)
[2025-01-02] MEDS: ZITHROMAX INJ 500 MG VIAL 500 MG in NS 250 ML IV 250 ML IV SCH (03:59)
[2025-01-02] MEDS: DILAUDID INJ IVP PRN (04:07)
[2025-01-02 06:15] LABS: RED BLOOD COUNT 4.03 X10^6/uL (4.7-6.0)
[2025-01-02 06:21] LABS: BASOPHILS % (AUTO) 0.2 % (0.2-1.0); HEMATOCRIT 33.7 % (42.0-54.0); HEMOGLOBIN 11.5 g/dL (13.5-18.0); LYMPHOCYTES # (AUTO) 0.2 X10^3/uL (1.3-2.9); LYMPHOCYTES % (AUTO) 2.2 % (21.0-51.0); MEAN CORPUSCULAR HEMOGLOBIN 28.5 pg (27.0-34.0); MEAN CORPUSCULAR HGB CONC 34.1 g/dL (33.0-35.0); MEAN CORPUSCULAR VOLUME 83.6 fL (80.0-100.0); MEAN PLATELET VOLUME 8.8 fL (7.4-11.0); MONOCYTES # (AUTO) 0.9 x10^3/uL (0.3-0.8); MONOCYTES % (AUTO) 7.8 % (0.0-13.0); NEUTROPHILS # (AUTO) 9.9 x10^3/uL (2.2-4.8); NEUTROPHILS % (AUTO) 89.8 % (42.0-75.0); PLATELET COUNT 124 X10^3/uL (150.0-450.0); RED CELL DISTRIBUTION WIDTH 17.3 % (11.6-16.5)
[2025-01-02 06:22] LABS: ALANINE AMINOTRANSFERASE 16 Units/L (12-78); ALBUMIN 3.7 g/dL (3.4-5.0); ALKALINE PHOSPHATASE 76 Units/L (46-116); ASPARTATE AMINO TRANSFERASE 16 Units/L (15-37); BLOOD UREA NITROGEN 20 mg/dL (7-18); CALCIUM 9.8 mg/dL (8.5-10.1); CARBON DIOXIDE 30.6 mmol/L (21-32); CHLORIDE 105 mmol/L (98-107); GLUCOSE 108 mg/dL (65-99); POTASSIUM 3.3 mmol/L (3.5-5.1); SODIUM 144 mmol/L (136-145); TOTAL PROTEIN 6.4 g/dL (6.4-8.2); eGFR NON BLACK RACES > 60 (>60)
[2025-01-02] MEDS ORDERED: CONSULT PHARMACY - POTASSIUM & MAGNESIUM XX SCH (07:00)
--- NOTE | 2025-01-02 07:43 | RAD ---
EXAM: CHEST, 1 VIEW HISTORY: PNEUMONIA; [place], CAD, HTN, DM, CHF, AFIB SX: ANGIO/STENTS, QAMAR KNEES, RIGHT SHOULDER COMPARISON: 12/30/2024 FINDINGS: The cardiomediastinal silhouette is stable. Slight worsening of bibasilar opacities and probable small effusions. No pneumothorax. No acute osseous abnormality. IMPRESSION: Worsening bibasilar pleural-parenchymal opacities. THIS IS AN ELECTRONICALLY VERIFIED FINAL REPORT 01/02/2025 7:40 AM - Electronically signed by Zana Villar MD
[2025-01-02] MEDS ORDERED: K-DUR TAB 20 MEQ PO SCH (08:00)
[2025-01-02] MEDS: MORPHINE SULFATE INJ 2 MG INJ IVP ONE (08:58)
[2025-01-02] MEDS ORDERED: PROTONIX TAB 40 MG PO SCH (09:00)
[2025-01-02] MEDS ORDERED: LASIX IVP SCH (09:00)
[2025-01-02] MEDS: MAG-OX TAB PO SCH (09:10)
[2025-01-02] MEDS: ZESTRIL TAB 10 MG PO SCH (09:10)
[2025-01-02] MEDS: VISBIOME PROBIOTIC CAP 112.5 B or equivalent PO SCH (09:10)
[2025-01-02] MEDS: ROBITUSSIN DM PO SCH (09:10)
[2025-01-02] MEDS: K-DUR TAB 20 MEQ PO SCH ×2 (09:11→11:23)
[2025-01-02] MEDS: LASIX IVP SCH (09:11)
[2025-01-02] MEDS: DUONEB 0.5 MG/3 MG (3 mL) NEB SCH (09:12)
[2025-01-02] MEDS: PULMICORT NEB TX 0.5 MG NEB SCH (09:12)
[2025-01-02 09:44] LABS: AMYLASE 22 Units/L (25-115); LIPASE 12 Units/L (16-77)
[2025-01-02] MEDS: PROTONIX INJ 40 MG VIAL IVP SCH (09:56)
[2025-01-02] MEDS: PEPCID 20 MG VIAL IVP ONE (09:56)
[2025-01-02] MEDS: SOLU-Medrol 125 MG VIAL IVP SCH (10:43)
[2025-01-02] MEDS: LOVENOX INJ 40 MG SYR SC SCH (10:43)
--- NOTE | 2025-01-02 12:13 | DR.H&P ---
H&P History & Physical for Day of: H&P Date: 01/01/25 Chief Complaint Chief Complaint: upper abdominal pain, sob History of Present Illness History of Present Illness: patient complains of mid-epigastric pain that started prior to arrival. Patient states he has an extensive cardiac history with history of A-fib and blood clots for which she takes a blood thinner. Patient states he also has a history of a brain bleed. Denies any chest pain or diaphoresis at this time. Denies nausea vomiting diarrhea or constipation. Ad mits to dyspnea on exertion over the last few months. Past Medical History Past Medical History: CHF, Coronary Artery Disease, Diabetes, Dyslipidemia, Hypertension and [place] Past Surgical History Surgical History: Ortho Surgery Family History Family Medical History: [place], Coronary Artery Disease, Sudden Cardiac and Hypertension Social History Does patient currently use any type of tobacco product: No Have you used tobacco products in the last 12 months: No Type of Tobacco Use: Cigarettes Does any household member use tobacco: No Alcohol Use: Rarely Drug Use: None Medications Home Medications: Home Medications Medication Instructions Recorded Confirmed Type aspirin 81 mg chewable tablet 81 mg PO QDAY 08/01/24 01/02/25 History clonidine HCl 0.1 mg tablet 0.1 mg PO DAILY PRN 08/01/24 01/02/25 History apixaban 5 mg tablet (Eliquis) 5 mg PO BID 01/02/25 01/02/25 History aspirin 81 mg tablet,delayed 81 mg PO QDAY 01/02/25 01/02/25 History release atorvastatin 40 mg tablet 40 mg PO QDAY 01/02/25 01/02/25 History donepezil 5 mg tablet 5 mg PO QDAY 01/02/25 01/02/25 History hydrocodone 10 mg-acetaminophen 1 tab PO TID PRN 01/02/25 01/02/25 History 325 mg tablet lisinopril 10 mg tablet 10 mg PO QDAY 01/02/25 01/02/25 History metformin 500 mg tablet 500 mg PO BID 01/02/25 01/02/25 History metoprolol succinate 50 mg 50 mg PO BID 01/02/25 01/02/25 History tablet,extended release 24 hr pantoprazole 40 mg tablet,delayed 40 mg PO QDAY 01/02/25 01/02/25 History release potassium chloride 10 mEq 10 meq PO BID 01/02/25 01/02/25 History tablet,extended release(part/cryst) terazosin 2 mg capsule 4 mg PO QPM 01/02/25 01/02/25 History Allergies Allergies Allergy/AdvReac Type Severity Reaction Status Date / Time No Known Drug Allergies Allergy Verified 08/07/24 14:22 Labs 01/02/25 05:53 01/02/25 05:53 Labs: Laboratory WBC 11.0 X10^3/uL (3.6-10.0) H 01/02/25 05:53 RBC 4.03 X10^6/uL (4.7-6.0) L 01/02/25 05:53 Hgb 11.5 g/dL (13.5-18.0) L 01/02/25 05:53 Hct 33.7 % (42.0-54.0) L 01/02/25 05:53 MCV 83.6 fL (80.0-100.0) 01/02/25 05:53 MCH 28.5 pg (27.0-34.0) 01/02/25 05:53 MCHC 34.1 g/dL (33.0-35.0) 01/02/25 05:53 RDW 17.3 % (11.6-16.5) H 01/02/25 05:53 Plt Count 124 X10^3/uL (150.0-450.0) L 01/02/25 05:53 MPV 8.8 fL (7.4-11.0) 01/02/25 05:53 Neut % (Auto) 89.8 % (42.0-75.0) H 01/02/25 05:53 Lymph % (Auto) 2.2 % (21.0-51.0) L 01/02/25 05:53 [place] % (Auto) 7.8 % (0.0-13.0) 01/02/25 05:53 Eos % (Auto) 0.0 % (0.9-2.9) L 01/02/25 05:53 Baso % (Auto) 0.2 % (0.2-1.0) 01/02/25 05:53 Neut # (Auto) 9.9 x10^3/uL (2.2-4.8) H 01/02/25 05:53 Lymph # (Auto) 0.2 X10^3/uL (1.3-2.9) L 01/02/25 05:53 [place] # (Auto) 0.9 x10^3/uL (0.3-0.8) H 01/02/25 05:53 Eos # (Auto) 0.0 x10^3/uL (0.0-0.2) 01/02/25 05:53 Baso # (Auto) 0.0 X10^3/uL (0.0-0.1) 01/02/25 05:53 Absolute Nucleated RBC 0.0 /100WBC 01/02/25 05:53 D-Dimer 1.73 ug/ml (0.0-0.57) H 01/01/25 21:40 Sodium 144 mmol/L (136-145) 01/02/25 05:53 Corrected Sodium TNP 01/02/25 05:53 Potassium 3.3 mmol/L (3.5-5.1) L 01/02/25 05:53 Chloride 105 mmol/L (98-107) 01/02/25 05:53 Carbon Dioxide 30.6 mmol/L (21-32) 01/02/25 05:53 BUN 20 mg/dL (7-18) H 01/02/25 05:53 Creatinine 1.20 mg/dL (0.70-1.30) 01/02/25 05:53 Est GFR (MDRD) Af Amer > 60 (>60) 01/02/25 05:53 Est GFR (MDRD) Non-Af > 60 (>60) 01/02/25 05:53 Glucose 108 mg/dL (65-99) H 01/02/25 05:53 POC Glucose (mg/dL) 93 mg/dL (65-99) 01/02/25 11:07 Lactic Acid 1.8 mmol/L (0.4-2.0) 01/02/25 09:25 Calcium 9.8 mg/dL (8.5-10.1) 01/02/25 05:53 Corrected Calcium TNP 01/02/25 05:53 Magnesium 1.8 mg/dL (2.0-2.9) L 01/01/25 21:40 Total Bilirubin 0.80 mg/dL (0.2-1.0) 01/02/25 05:53 AST 16 Units/L (15-37) 01/02/25 05:53 ALT 16 Units/L (12-78) 01/02/25 05:53 Alkaline Phosphatase 76 Units/L (46-116) 01/02/25 05:53 Creatine Kinase 64 Units/L (39-308) 01/01/25 21:40 Troponin I High Sens 12.2 ng/L (4.0-60.0) 01/02/25 00:18 B-Natriuretic Peptide 457 pg/mL (0-79) H 01/01/25 21:40 Total Protein 6.4 g/dL (6.4-8.2) 01/02/25 05:53 Albumin 3.7 g/dL (3.4-5.0) 01/02/25 05:53 Globulin 2.7 g/dL (2.5-4.5) 01/02/25 05:53 Albumin/Globulin Ratio 1.4 Ratio (1.1-2.1) 01/02/25 05:53 Amylase 22 Units/L (25-115) L 01/02/25 09:25 Lipase 12 Units/L (16-77) L 01/02/25 09:25 Specimen Type Clean catch urine 01/01/25 22:05 Urine Color Pale yellow (YELLOW) 01/01/25 22:05 Urine Appearance Clear (CLEAR) 01/01/25 22:05 Urine pH 6.5 (5.0 - 8.0) 01/01/25 22:05 Ur Specific [place] 1.010 (1.000-1.030) 01/01/25 22:05 Urine Protein 2+ (NEGATIVE) 01/01/25 22:05 Urine Glucose (UA) 3+ (NEGATIVE) 01/01/25 22:05 Urine Ketones Negative (NEGATIVE) 01/01/25 22:05 Urine Blood 3+ (NEGATIVE) 01/01/25 22:05 Urine Nitrite Negative (NEGATIVE) 01/01/25 22:05 Urine Bilirubin Negative (NEGATIVE) 01/01/25 22:05 Urine Urobilinogen Normal (NORMAL) 01/01/25 22:05 Ur Leukocyte Esterase Negative (NEGATIVE) 01/01/25 22:05 Urine RBC 0-2 /HPF (0-3) 01/01/25 22:05 Urine WBC None seen /HPF (0-5) 01/01/25 22:05 Ur Squamous Epith Cells Rare /HPF (NEGATIVE) 01/01/25 22:05 Urine Bacteria Negative /HPF (NEGATIVE) 01/01/25 22:05 Ur Culture Indicated? No/not indicated 01/01/25 22:05 Review of Systems Constitutional: Weakness Eyes: No Symptoms Reported ENT: No Symptoms Reported Respiratory: Shortness of Breath Cardiovascular: No Symptoms Reported Gastrointestinal: Abdominal Pain Genitourinary: No Symptoms Reported Musculoskeletal: Back Pain Skin: No Symptoms Reported Neurological: No Symptoms Reported Physical Exam Vital Signs: Vital Signs Temperature 98.3 F Temperature 97.7 F Pulse Rate [Radial] 100 Pulse Rate [Radial] 109 Pulse Rate 88 Respiratory Rate 20 Respiratory Rate 20 Respiratory Rate 21 Respiratory Rate 18 Respiratory Rate 20 Respiratory Rate 22 Blood Pressure [Right Arm] 129/69 Blood Pressure [Right Arm] 129/78 O2 Sat by Pulse Oximetry 90 O2 Sat by Pulse Oximetry 96 O2 Sat by Pulse Oximetry 91 Oriented: Normal Eyes: Normal Nose: Normal Throat: Dry Respiratory: RLL Diminished and LLL Diminished Cardiovascular: Normal Auscultation: Bowel Sounds: Normal Palpation: Normal Tenderness: Diffuse and Epigastric Skin: Decreased Turgur Musculoskeletal: Back:Thoracic and Back:Lumbar Psychiatric: Normal Mood Description: Calm Affect: Normal Speech Pattern: Clear and Appropriate Assessment/Plan (1) Acute colitis: Status: Acute Plan: ADMIT, PAIN CONTROL IV ATBX, RESP THERAPY PPI THERAPY, BS CONTROL BP CONTROL (2) Bilateral pneumonia: Status: Acute (3) Acute exacerbation of CHF (congestive heart failure): Status: Acute (4) Diabetes: Status: Chronic (5) Atrial fibrillation: Status: Chronic (6) SOB (shortness of breath): Status: Acute
--- NOTE | 2025-01-02 15:39 | CT ---
EXAM: CT ABDOMEN AND PELVIS WITH CONTRAST HISTORY: GI BLEED, DISTENTION; COMPARISON: CT dated 01/01/2025. TECHNIQUE: Axial CT images were obtained through the abdomen and pelvis after the intravenous administration of contrast. Coronal and sagittal reformatted images were included. Informed written consent was obtained prior to contrast administration. All CT scans at this facility use dose modulation, iterative reconstruction, and/or weight based dosi ng when appropriate to reduce radiation dose to as low as reasonably achievable. FINDINGS: Moderate pleural effusions and bibasilar atelectasis. Moderate pericardial effusion. Left atrial ap pendage occlusion device in place. Moderate aortic and coronary artery calcifications. Unremarkable liver. Gallbladder is distended with mild wall thickening and calcified gallstone near the gallbladder neck. No biliary dilatation. Unremarkable spleen, pancreas, and adrenals. Kidneys enhance symmetrically and there is no hydronephrosis or perinephric stranding. Multiple bilateral re nal cysts. [id number] aortoiliac atherosclerosis without aneurysm. No abnormally distended or focally thickened bowel loops. Mild scattered colonic diverticula without surrounding inflammation. No free peritoneal air or fluid. Unremarkable urinary bladder. No acute osseous findings. Moderate thoracolumbar spondylosis. IMPRESSION: 1. Findings suspicious for acute calculus cholecystitis. Gallbladder is distended with calcified gal lstone near the gallbladder neck. If clinical findings are discordant, nuclear medicine hepatobiliar y scan may be considered for further evaluation. 2. Moderate pleural effusions and moderate pericardial effusion are similar to comparison. 3. No acute bowel pathology. Mild scattered colonic diverticula without surrounding inflammation. THIS IS AN ELECTRONICALLY VERIFIED FINAL REPORT 01/02/2025 3:35 PM - Electronically signed by Devin Bowden MD
[2025-01-02] MEDS: ZOCOR TAB 40 MG PO SCH (20:15)
[2025-01-02] MEDS: SNACK - Diabetic Appropriate PO SCH (20:15)
[2025-01-02] MEDS: TOPROL XL PO SCH (21:01)
[2025-01-02] MEDS: ELIQUIS PO SCH (21:01)
[2025-01-02] MEDS: TERAZOSIN 2 MG PO SCH (21:16)
[2025-01-02] MEDS: CARDIZEM INJ 50 MG VIAL IVP ONE (23:50)
[2025-01-03 07:28] LABS: LYMPHOCYTES # (AUTO) 0.3 X10^3/uL (1.3-2.9); MEAN CORPUSCULAR VOLUME 84.1 fL (80.0-100.0); PLATELET COUNT 100 X10^3/uL (150.0-450.0); RED CELL DISTRIBUTION WIDTH 17.8 % (11.6-16.5)
[2025-01-03 07:32] LABS: BASOPHILS # (AUTO) 0.1 X10^3/uL (0.0-0.1); BASOPHILS % (AUTO) 0.5 % (0.2-1.0); HEMATOCRIT 35.6 % (42.0-54.0); HEMOGLOBIN 11.7 g/dL (13.5-18.0); LYMPHOCYTES % (AUTO) 2.1 % (21.0-51.0); MEAN CORPUSCULAR HEMOGLOBIN 27.7 pg (27.0-34.0); MEAN CORPUSCULAR HGB CONC 32.9 g/dL (33.0-35.0); MEAN PLATELET VOLUME 9.4 fL (7.4-11.0); MONOCYTES % (AUTO) 6.4 % (0.0-13.0); RED BLOOD COUNT 4.23 X10^6/uL (4.7-6.0); WHITE BLOOD COUNT 16.4 X10^3/uL (3.6-10.0)
[2025-01-03 07:37] LABS: ALANINE AMINOTRANSFERASE 13 Units/L (12-78); ALBUMIN 3.5 g/dL (3.4-5.0); ALKALINE PHOSPHATASE 71 Units/L (46-116); ASPARTATE AMINO TRANSFERASE 17 Units/L (15-37); BLOOD UREA NITROGEN 25 mg/dL (7-18); CHLORIDE 101 mmol/L (98-107); CREATININE 1.61 mg/dL (0.70-1.30); GLUCOSE 108 mg/dL (65-99); MAGNESIUM 1.6 mg/dL (2.0-2.9); POTASSIUM 3.9 mmol/L (3.5-5.1); SODIUM 142 mmol/L (136-145); TOTAL PROTEIN 6.6 g/dL (6.4-8.2); eGFR NON BLACK RACES 44 (>60)
[2025-01-03 07:58] LABS: ANISOCYTOSIS SLIGHT; PLATELET MORPHOLOGY COMMENT NORMAL (NORMAL)
[2025-01-03] MEDS ORDERED: CONSULT PHARMACY - POTASSIUM & MAGNESIUM XX SCH (08:00)
[2025-01-03] MEDS: ASPIRIN EC 81 MG PO SCH (08:35)
[2025-01-03] MEDS: MAG-OX TAB PO ONE (08:35)
[2025-01-03] MEDS: READI-CAT 2 ONE (09:12)
[2025-01-03] MEDS: NS 1/2 1,000 ML IV 1,000 ML IV ONE (09:12)
[2025-01-03] MEDS: LEVSIN/MAALOX/LIDOC VISC ONE (09:13)
[2025-01-03] MEDS: ZOFRAN INJ 4 MG VIAL ONE (09:13)
[2025-01-03] MEDS: MORPHINE SULFATE INJ 2 MG INJ ONE (09:13)
[2025-01-03] MEDS: OMNIPAQUE 350 mg/mL 100 mL BTL 100 ML ONE ×2 (09:13→09:14)
[2025-01-03] MEDS: NS 100 ML IV 100 ML ONE (09:14)
[2025-01-03] MEDS: APRESOLINE INJ 20 MG VIAL ONE (09:14)
[2025-01-03] MEDS: TERAZOSIN 2 MG PO SCH (09:15)
[2025-01-03] MEDS: FLAGYL IV PREMIX 500 MG BAG 500 MG/100 ML BAG IV SCH ×2 (09:46→21:07)
[2025-01-03] MEDS: CARDIZEM TAB 30 MG PLAIN PO SCH (09:46)
--- NOTE | 2025-01-03 10:09 | NOTE.SOAP ---
Soap Note Note for Day of Date of Exam: 01/03/25 Subjective Data Subjective Data: Patient seen for daily rounds. Yesterday's repeat CTA A/P showed acute calculus cholecystitis. Patient reports that his abdominal pain does seem better overall. Heart rate remained elevated overnight until a single dose of IV diltiazem was given. Patient tolerated it well. Does have a history of atrial fibrillation. Objective Data Objective Data: Elderly male in no acute distress. Heart irregularly, irregular and tachycardic. Lungs with bilateral rales at bases and shallow respirations. Bowel sounds are present with mild tenderness in the right upper quadrant. Mood and affect are appropriate. Assessment Assessment: 1. Acute calculus cholecystitis 2. B/L lower lobe CAP. 3. Acute CHF exacerbation 4. Afib with RVR Plan Plan: Start Levaquin and Flagyl, stop other antibiotics. Surgery consult. Incentive spirometry. Gentle diuresis. Add diltiazem 30 mg 3 times daily p.o. Resume Eliquis.
[2025-01-03] MEDS: LEVAQUIN PREMIX IV 500 MG 500 MG/100 ML BAG IV SCH (11:47)
[2025-01-03] MEDS: ZOFRAN TAB 4 MG SL PRN (17:47)
[2025-01-03] MEDS: RESTORIL CAP 15 MG PO PRN (23:29)
[2025-01-04] MEDS ORDERED: NS 1/2 1,000 ML IV 1,000 ML IV ONE (04:25)
[2025-01-04 05:00] LABS: BASOPHILS % (AUTO) 0.2 % (0.2-1.0); HEMATOCRIT 33.5 % (42.0-54.0); HEMOGLOBIN 11.2 g/dL (13.5-18.0); LYMPHOCYTES # (AUTO) 0.3 X10^3/uL (1.3-2.9); LYMPHOCYTES % (AUTO) 1.7 % (21.0-51.0); MEAN CORPUSCULAR HGB CONC 33.5 g/dL (33.0-35.0); MEAN CORPUSCULAR VOLUME 83.5 fL (80.0-100.0); MEAN PLATELET VOLUME 9.7 fL (7.4-11.0); MONOCYTES # (AUTO) 0.6 x10^3/uL (0.3-0.8); NEUTROPHILS # (AUTO) 14.6 x10^3/uL (2.2-4.8); NEUTROPHILS % (AUTO) 94.1 % (42.0-75.0); PLATELET COUNT 101 X10^3/uL (150.0-450.0); RED BLOOD COUNT 4.01 X10^6/uL (4.7-6.0); RED CELL DISTRIBUTION WIDTH 18.1 % (11.6-16.5); WHITE BLOOD COUNT 15.6 X10^3/uL (3.6-10.0)
[2025-01-04 05:13] LABS: ALANINE AMINOTRANSFERASE 14 Units/L (12-78); ALBUMIN 2.9 g/dL (3.4-5.0); ALKALINE PHOSPHATASE 73 Units/L (46-116); ASPARTATE AMINO TRANSFERASE 17 Units/L (15-37); BLOOD UREA NITROGEN 31 mg/dL (7-18); CALCIUM 9.7 mg/dL (8.5-10.1); CARBON DIOXIDE 30.7 mmol/L (21-32); CHLORIDE 101 mmol/L (98-107); COR CA(FOR HYPOALB) 10.6 mg/dL (8.5-10.1); COR NA(FOR HYPERGLY) 139 mmol/L (136-145); CREATININE 1.39 mg/dL (0.70-1.30); GLUCOSE 114 mg/dL (65-99); POTASSIUM 3.4 mmol/L (3.5-5.1); SODIUM 139 mmol/L (136-145); TOTAL PROTEIN 6.2 g/dL (6.4-8.2); eGFR NON BLACK RACES 52 (>60)
[2025-01-04 05:20] LABS: ANISOCYTOSIS SLIGHT; BAND NEUTROPHILS % 5 % (0-10); PLATELET MORPHOLOGY COMMENT NORMAL (NORMAL)
[2025-01-04] MEDS ORDERED: CONSULT PHARMACY - POTASSIUM & MAGNESIUM XX SCH (06:00)
--- NOTE | 2025-01-04 06:11 | RAD ---
EXAMINATION:CHEST, 1 VIEWHISTORY:Bilateral PNA; .COMPARISON STUDY:Chest x-ray 01/03/2020TECHNIQUE:Single frontal view of the chestFINDINGS:Dense alveolar infiltrates mid and lower lung briones bilaterally. Opacities obscuring the hemidiaphragms of the chest. Moderate cardiac silhouette enlargement. Slight pulmonary vascular congestion. Bones appear intactIMPRESSION:Dense opacities obscuring the mid and lower lung briones and hemidiaphragms of the chest.Moderate cardiac silhouette enlargement with slight pulmonary vascular congestion.THIS IS AN ELECTRONICALLY VERIFIED FINAL REPORT01/04/2025 6:08 AM - Electronically signed by Li Pastrana MD
[2025-01-04] MEDS: K-DUR TAB 20 MEQ PO SCH (08:38)
--- NOTE | 2025-01-04 15:35 | NOTE.SOAP ---
Soap Note Note for Day of Date of Exam: 01/04/25 Subjective Data Subjective Data: Seen with family at bedside. White count did decrease with antibiotic changes. Still with right upper quadrant pain and decreased appetite. They are agreeable to surgery consultation. Potassium touch low this morning. Patient otherwise feels like he is doing better. Objective Data Objective Data: Lungs diminished with rhonchi at the bases. Heart rate is irregularly, irregular. Mood and affect are improved from yesterday. Head NCAT, hearing intact to conversation, EOMI. No acute distress. Assessment Assessment: 1. Severe sepsis due to b/l PNA and calculus cholecystitis, acute Leukocytosis, tachycardia, sources, KRISTOPHER. 2. KRISTOPHER due to above, acute. 3. Afib w/ RVR, acute. Plan Plan: Continue IV Levaquin/Flagyl, surgery consult, continue BB and dilt with Eliquis.
--- NOTE | 2025-01-04 17:54 | EKG ---
Test Reason : vtach Blood Pressure : */* mmHG Vent. Rate : 120 BPM Atrial Rate : * BPM P-R Int : * ms QRS Dur : 104 ms QT Int : 336 ms P-R-T Axes : * 80 -5 degrees QTc Int : 474 ms Atrial fibrillation with rapid ventricular response with premature ventricular or aberrantly conducte d complexes Incomplete right bundle branch block Cannot rule out Anterior infarct (cited on or before 01-JAN-2025) Abnormal ECG When compared with ECG of 01-JAN-2025 21:39, No significant change was found Confirmed by Simon Marley MD ([id number]) on 01/05/2025 7:30:48 AM Referred By: Confirmed By: Simon Marley MD
[2025-01-04] MEDS: ARICEPT TAB 5 MG PO SCH (20:31)
[2025-01-04] MEDS: NovoLIN R (or HumuLIN R) SUBCUT PRN (20:37)
[2025-01-05 05:05] LABS: BASOPHILS % (AUTO) 0.1 % (0.2-1.0); HEMATOCRIT 34.8 % (42.0-54.0); HEMOGLOBIN 11.6 g/dL (13.5-18.0); LYMPHOCYTES # (AUTO) 0.2 X10^3/uL (1.3-2.9); LYMPHOCYTES % (AUTO) 1.5 % (21.0-51.0); MEAN CORPUSCULAR HEMOGLOBIN 27.7 pg (27.0-34.0); MEAN CORPUSCULAR HGB CONC 33.3 g/dL (33.0-35.0); MEAN CORPUSCULAR VOLUME 83.1 fL (80.0-100.0); MEAN PLATELET VOLUME 9.8 fL (7.4-11.0); MONOCYTES # (AUTO) 0.7 x10^3/uL (0.3-0.8); MONOCYTES % (AUTO) 4.9 % (0.0-13.0); NEUTROPHILS % (AUTO) 93.5 % (42.0-75.0); PLATELET COUNT 113 X10^3/uL (150.0-450.0); RED BLOOD COUNT 4.19 X10^6/uL (4.7-6.0); RED CELL DISTRIBUTION WIDTH 17.1 % (11.6-16.5)
[2025-01-05 05:23] LABS: ALANINE AMINOTRANSFERASE 12 Units/L (12-78); ALBUMIN 2.5 g/dL (3.4-5.0); ALKALINE PHOSPHATASE 81 Units/L (46-116); ASPARTATE AMINO TRANSFERASE 10 Units/L (15-37); BLOOD UREA NITROGEN 34 mg/dL (7-18); CALCIUM 9.8 mg/dL (8.5-10.1); CARBON DIOXIDE 30.6 mmol/L (21-32); CHLORIDE 102 mmol/L (98-107); COR NA(FOR HYPERGLY) 139 mmol/L (136-145); CREATININE 1.37 mg/dL (0.70-1.30); GLUCOSE 157 mg/dL (65-99); MAGNESIUM 2.1 mg/dL (2.0-2.9); POTASSIUM 3.4 mmol/L (3.5-5.1); SODIUM 138 mmol/L (136-145); TOTAL PROTEIN 5.8 g/dL (6.4-8.2); eGFR NON BLACK RACES 53 (>60)
[2025-01-05 05:35] LABS: ANISOCYTOSIS SLIGHT; BAND NEUTROPHILS % 4 % (0-10); PLATELET MORPHOLOGY COMMENT NORMAL (NORMAL)
[2025-01-05] MEDS ORDERED: CONSULT PHARMACY - POTASSIUM & MAGNESIUM XX SCH (06:00)
[2025-01-05] MEDS: K-DUR TAB 20 MEQ PO SCH ×2 (08:23→22:18)
[2025-01-05] MEDS: LASIX IVP ONE (09:02)
--- NOTE | 2025-01-05 11:14 | RAD ---
EXAM:CHEST, 1 VIEWHISTORY:CHF; [place], CAD, HTN, DM, CHF, AFIB SX: ANGIO/STENTS, QAMAR KNEES, RIGHT SHOULDERCOMPARISON:01/04/2025FINDINGS: br improved since yesterday.Left pleural effusion is noted.Upper lungs are clear. No pneumothorax.Cardiomegaly is present. Atherosclerotic calcifications are present in the aorta.The bones are unremarkable.EKG leads are noted.IMPRESSION:1. Improved pneumonia2. Small left effusion3. CardiomegalyTHIS IS AN ELECTRONICALLY VERIFIED FINAL REPORT01/05/2025 11:10 AM - Electronically signed by Mohinder Smyth MD
[2025-01-05] MEDS: TUSSIONEX PENNKINETIC SUSP PO PRN (22:17)
[2025-01-06 06:03] LABS: BASOPHILS % (AUTO) 0.2 % (0.2-1.0); EOSINOPHILS % (AUTO) 0.2 % (0.9-2.9); HEMATOCRIT 37.9 % (42.0-54.0); HEMOGLOBIN 12.6 g/dL (13.5-18.0); LYMPHOCYTES # (AUTO) 0.3 X10^3/uL (1.3-2.9); MEAN CORPUSCULAR HEMOGLOBIN 27.5 pg (27.0-34.0); MEAN CORPUSCULAR HGB CONC 33.3 g/dL (33.0-35.0); MEAN CORPUSCULAR VOLUME 82.6 fL (80.0-100.0); MEAN PLATELET VOLUME 9.6 fL (7.4-11.0); MONOCYTES # (AUTO) 1.2 x10^3/uL (0.3-0.8); MONOCYTES % (AUTO) 7.3 % (0.0-13.0); NEUTROPHILS # (AUTO) 14.6 x10^3/uL (2.2-4.8); NEUTROPHILS % (AUTO) 90.3 % (42.0-75.0); PLATELET COUNT 135 X10^3/uL (150.0-450.0); RED BLOOD COUNT 4.58 X10^6/uL (4.7-6.0); RED CELL DISTRIBUTION WIDTH 17.3 % (11.6-16.5); WHITE BLOOD COUNT 16.1 X10^3/uL (3.6-10.0)
[2025-01-06 06:16] LABS: ALANINE AMINOTRANSFERASE 14 Units/L (12-78); ALBUMIN 2.7 g/dL (3.4-5.0); ALKALINE PHOSPHATASE 84 Units/L (46-116); ASPARTATE AMINO TRANSFERASE 13 Units/L (15-37); BLOOD UREA NITROGEN 29 mg/dL (7-18); CALCIUM 10.2 mg/dL (8.5-10.1); CARBON DIOXIDE 32.6 mmol/L (21-32); CHLORIDE 101 mmol/L (98-107); COR CA(FOR HYPOALB) 11.2 mg/dL (8.5-10.1); COR NA(FOR HYPERGLY) 141 mmol/L (136-145); CREATININE 1.35 mg/dL (0.70-1.30); GLUCOSE 129 mg/dL (65-99); POTASSIUM 3.3 mmol/L (3.5-5.1); SODIUM 140 mmol/L (136-145); TOTAL PROTEIN 6.3 g/dL (6.4-8.2); eGFR NON BLACK RACES 54 (>60)
[2025-01-06 06:39] LABS: BAND NEUTROPHILS % 6 % (0-10); PLATELET MORPHOLOGY COMMENT NORMAL (NORMAL)
[2025-01-06] MEDS ORDERED: CONSULT PHARMACY - POTASSIUM & MAGNESIUM XX SCH (08:00)
[2025-01-06] MEDS: K-DUR TAB 20 MEQ PO SCH (08:59)
[2025-01-06 09:08] LABS: AMYLASE 18 Units/L (25-115); LIPASE 22 Units/L (16-77)
--- NOTE | 2025-01-06 16:44 | DR.PROGNOT ---
HOSPITAL PROGRESS NOTE Progress Note for Day of: Progress Note Date: 01/06/25 Chief Complaint Chief Complaint: Still complaining of abdominal pain mainly epigastric and right upper quadrant. Patient is complaining of nausea and food intolerance. WBC 16.1 with shift to the left, BUN 29, creatinine 1.35. Abdomen is moderately distended with moderate to severe epigastric and right upper quadrant tenderness. Past Medical Family Social History Allergies: Allergies No Known Drug Allergies Allergy (Verified 08/07/24 14:22) Vital Signs Vital Signs: Vital Signs Temperature 98.8 F Temperature 98.2 F Pulse Rate [Right Brachial] 97 Pulse Rate [Right Brachial] 93 Respiratory Rate 17 Respiratory Rate 17 Blood Pressure [Right Arm] 129/64 Blood Pressure [Right Arm] 117/64 O2 Sat by Pulse Oximetry 96 O2 Sat by Pulse Oximetry 97 Physical Exam Oriented: Normal Eyes: Normal Nose: Normal Throat: Dry Cardiovascular: Normal GI:Auscultation: Decreased GI:Palpation: Normal GI: Tenderness: Diffuse and Epigastric Skin: Decreased Turgur Musculoskeletal: Back:Thoracic and Back:Lumbar Psychiatric: Normal Mood Description: Calm Affect: Normal Speech Pattern: Clear and Appropriate Laboratory and Diagnostics 01/06/25 05:20 01/06/25 05:20 Labs: 01/03/25 17:30 Sputum - Expectorated Sputum Sputum Culture - Final 01/03/25 17:30 Sputum - Expectorated Sputum - Final 01/02/25 02:50 Blood Blood Culture - Preliminary 01/02/25 02:43 Blood Blood Culture - Preliminary 01/02/25 11:30 Urine,Clean Catch Urine Culture - Final Laboratory WBC 16.1 X10^3/uL (3.6-10.0) H 01/06/25 05:20 RBC 4.58 X10^6/uL (4.7-6.0) L 01/06/25 05:20 Hgb 12.6 g/dL (13.5-18.0) L 01/06/25 05:20 Hct 37.9 % (42.0-54.0) L 01/06/25 05:20 MCV 82.6 fL (80.0-100.0) 01/06/25 05:20 MCH 27.5 pg (27.0-34.0) 01/06/25 05:20 MCHC 33.3 g/dL (33.0-35.0) 01/06/25 05:20 RDW 17.3 % (11.6-16.5) H 01/06/25 05:20 Plt Count 135 X10^3/uL (150.0-450.0) L 01/06/25 05:20 Plt Count Comment Decreased (ADEQUATE) 01/06/25 05:20 MPV 9.6 fL (7.4-11.0) 01/06/25 05:20 Neut % (Auto) 90.3 % (42.0-75.0) H 01/06/25 05:20 Lymph % (Auto) 2.0 % (21.0-51.0) L 01/06/25 05:20 [place] % (Auto) 7.3 % (0.0-13.0) 01/06/25 05:20 Eos % (Auto) 0.2 % (0.9-2.9) L 01/06/25 05:20 Baso % (Auto) 0.2 % (0.2-1.0) 01/06/25 05:20 Neut # (Auto) 14.6 x10^3/uL (2.2-4.8) H 01/06/25 05:20 Lymph # (Auto) 0.3 X10^3/uL (1.3-2.9) L 01/06/25 05:20 [place] # (Auto) 1.2 x10^3/uL (0.3-0.8) H 01/06/25 05:20 Eos # (Auto) 0.0 x10^3/uL (0.0-0.2) 01/06/25 05:20 Baso # (Auto) 0.0 X10^3/uL (0.0-0.1) 01/06/25 05:20 Absolute Nucleated RBC 0.0 /100WBC 01/06/25 05:20 Total Counted 100 01/06/25 05:20 Neutrophils % (Manual) 90 % (39-76) H 01/06/25 05:20 Band Neutrophils % 6 % (0-10) 01/06/25 05:20 Lymphocytes % (Manual) 2 % (13-43) L 01/06/25 05:20 Monocytes % (Manual) 2 % (4-9) L 01/06/25 05:20 Plt Morphology Comment Normal (NORMAL) 01/06/25 05:20 RBC Morphology Normal (NORMAL) 01/06/25 05:20 Anisocytosis Slight A 01/05/25 04:21 D-Dimer 1.73 ug/ml (0.0-0.57) H 01/01/25 21:40 Sodium 140 mmol/L (136-145) 01/06/25 05:20 Corrected Sodium 141 mmol/L (136-145) 01/06/25 05:20 Potassium 3.3 mmol/L (3.5-5.1) L 01/06/25 05:20 Chloride 101 mmol/L (98-107) 01/06/25 05:20 Carbon Dioxide 32.6 mmol/L (21-32) H 01/06/25 05:20 BUN 29 mg/dL (7-18) H 01/06/25 05:20 Creatinine 1.35 mg/dL (0.70-1.30) H 01/06/25 05:20 Est GFR (MDRD) Af Amer > 60 (>60) 01/06/25 05:20 Est GFR (MDRD) Non-Af 54 (>60) L 01/06/25 05:20 Glucose 129 mg/dL (65-99) H 01/06/25 05:20 POC Glucose (mg/dL) 115 mg/dL (65-99) H 01/06/25 16:34 Lactic Acid 1.8 mmol/L (0.4-2.0) 01/02/25 09:25 Calcium 10.2 mg/dL (8.5-10.1) H 01/06/25 05:20 Corrected Calcium 11.2 mg/dL (8.5-10.1) H 01/06/25 05:20 Magnesium 2.0 mg/dL (2.0-2.9) 01/06/25 05:20 Total Bilirubin 0.90 mg/dL (0.2-1.0) 01/06/25 05:20 AST 13 Units/L (15-37) L 01/06/25 05:20 ALT 14 Units/L (12-78) 01/06/25 05:20 Alkaline Phosphatase 84 Units/L (46-116) 01/06/25 05:20 Creatine Kinase 64 Units/L (39-308) 01/01/25 21:40 Troponin I High Sens 12.2 ng/L (4.0-60.0) 01/02/25 00:18 B-Natriuretic Peptide 457 pg/mL (0-79) H 01/01/25 21:40 Total Protein 6.3 g/dL (6.4-8.2) L 01/06/25 05:20 Albumin 2.7 g/dL (3.4-5.0) L 01/06/25 05:20 Globulin 3.6 g/dL (2.5-4.5) 01/06/25 05:20 Albumin/Globulin Ratio 0.8 Ratio (1.1-2.1) L 01/06/25 05:20 Amylase 18 Units/L (25-115) L 01/06/25 05:20 Lipase 22 Units/L (16-77) 01/06/25 05:20 Specimen Type Clean catch urine 01/01/25 22:05 Urine Color Pale yellow (YELLOW) 01/01/25 22:05 Urine Appearance Clear (CLEAR) 01/01/25 22:05 Urine pH 6.5 (5.0 - 8.0) 01/01/25 22:05 Ur Specific [place] 1.010 (1.000-1.030) 01/01/25 22:05 Urine Protein 2+ (NEGATIVE) 01/01/25 22: Urine Glucose (UA) 3+ (NEGATIVE) 01/01/25 22: Urine Ketones Negative (NEGATIVE) 01/01/25 22: Urine Blood 3+ (NEGATIVE) 01/01/25 22: Urine Nitrite Negative (NEGATIVE) 01/01/25 22: Urine Bilirubin Negative (NEGATIVE) 01/01/25 22:05 Urine Urobilinogen Normal (NORMAL) 01/01/25 22:05 Ur Leukocyte Esterase Negative (NEGATIVE) 01/01/25 22:05 Urine RBC 0-2 /HPF (0-3) 01/01/25 22:05 Urine WBC None seen /HPF (0-5) 01/01/25 22:05 Ur Squamous Epith Cells Rare /HPF (NEGATIVE) 01/01/25 22:05 Urine Bacteria Negative /HPF (NEGATIVE) 01/01/25 22:05 Ur Culture Indicated? No/not indicated 01/01/25 22:05 Stl Occult Blood (IFOB) Positive (NEGATIVE) A 01/02/25 15:30 Resp Viral Panel (PCR) See scanned report 01/02/25 04:00 Assessment and Plan 1: Acute calculus cholecystitis. Same treatment plan for now with IV fluid and IV antibiotics 2: Pneumonia 3: Congestive heart failure and A-fib. Problem Patient Problems: Patient Problems Acute exacerbation of CHF (congestive heart failure) (Acute) I50.9 Bilateral pneumonia (Acute) J18.9
--- NOTE | 2025-01-06 20:00 | RAD ---
EXAM:ACUTE ABDOMEN SERI ESHISTORY:ABDOMINAL PAIN ;COMPARISON:01/05/2025FINDINGS:The cardiomediastinal silhouette is prominent. Scattered bilateral pleural-parenchymal opacities.No acute osseous abnormality in the thorax.Evaluation of the abdomen demonstrates a nonobstructive bowel gas pattern. no evidence of pneumoperitoneum. No pathologic soft tissue calcification. No acute osseous abnormality in the abdomen.IMPRESSION:1. Similar bilateral airspace opacities and effusions. Continued follow-up recommended.2. No acute abdominal process.THIS IS AN ELECTRONICALLY VERIFIED FINAL REPORT01/06/2025 7:57 PM - Electronically signed by Zana Villar MD
[2025-01-06] MEDS: NORCO 5/325 MG TAB PO PRN (21:38)
[2025-01-07 04:31] VITALS: BMI 28.5
[2025-01-07 05:50] LABS: BASOPHILS % (AUTO) 0.3 % (0.2-1.0); EOSINOPHILS % (AUTO) 0.1 % (0.9-2.9); HEMATOCRIT 36.6 % (42.0-54.0); LYMPHOCYTES # (AUTO) 0.3 X10^3/uL (1.3-2.9); LYMPHOCYTES % (AUTO) 2.6 % (21.0-51.0); MEAN CORPUSCULAR HEMOGLOBIN 27.4 pg (27.0-34.0); MEAN CORPUSCULAR HGB CONC 32.8 g/dL (33.0-35.0); MEAN CORPUSCULAR VOLUME 83.5 fL (80.0-100.0); MEAN PLATELET VOLUME 9.5 fL (7.4-11.0); MONOCYTES % (AUTO) 7.9 % (0.0-13.0); NEUTROPHILS # (AUTO) 11.8 x10^3/uL (2.2-4.8); NEUTROPHILS % (AUTO) 89.1 % (42.0-75.0); PLATELET COUNT 131 X10^3/uL (150.0-450.0); RED BLOOD COUNT 4.38 X10^6/uL (4.7-6.0); RED CELL DISTRIBUTION WIDTH 17.4 % (11.6-16.5); WHITE BLOOD COUNT 13.2 X10^3/uL (3.6-10.0)
[2025-01-07 06:09] LABS: ALANINE AMINOTRANSFERASE 13 Units/L (12-78); ALBUMIN 2.4 g/dL (3.4-5.0); ALKALINE PHOSPHATASE 84 Units/L (46-116); ASPARTATE AMINO TRANSFERASE 13 Units/L (15-37); BLOOD UREA NITROGEN 25 mg/dL (7-18); CARBON DIOXIDE 32.7 mmol/L (21-32); CHLORIDE 102 mmol/L (98-107); COR CA(FOR HYPOALB) 11.3 mg/dL (8.5-10.1); COR NA(FOR HYPERGLY) 141 mmol/L (136-145); CREATININE 1.06 mg/dL (0.70-1.30); GLUCOSE 127 mg/dL (65-99); POTASSIUM 4.2 mmol/L (3.5-5.1); SODIUM 140 mmol/L (136-145); TOTAL PROTEIN 5.8 g/dL (6.4-8.2); eGFR NON BLACK RACES > 60 (>60)
[2025-01-07] MEDS: K-DUR TAB 20 MEQ PO SCH (09:28)
[2025-01-07] MEDS: LASIX IVP SCH (09:28)
[2025-01-07] MEDS: NS 1/2 1,000 ML IV 1,000 ML IV ONE (09:36)
--- NOTE | 2025-01-07 14:00 | RAD ---
EXAM: CHEST, PA/LAT ADULT HISTORY: pneumonia, chf; COMPARISON: Prior study or studies were utilized for comparison during interpretation with the most relevant rohit ed 01/05/2025 TECHNIQUE: CHEST, PA/LAT ADULT FINDINGS: Chest: Lines and tubes: Cardiac leads overlie the chest. Mediastinum: Cardiomegaly. Pulmonary vessels: There is pulmonary vascular congestion. Lung briones: Patchy opacities are seen Pleura: Bilateral costophrenic angle blunting Bones and soft tissues: No acute osseous or soft tissue abnormality. IMPRESSION: 1. Heart failure with pulmonary edema and small bilateral effusions THIS IS AN ELECTRONICALLY VERIFIED FINAL REPORT 01/07/2025 1:56 PM - Electronically signed by Sadiq Almanzar MD
--- NOTE | 2025-01-07 15:56 | DR.PROGNOT ---
HOSPITAL PROGRESS NOTE Progress Note for Day of: Progress Note Date: 01/07/25 Chief Complaint Chief Complaint: Still complaining of abdominal pain mainly epigastric and right upper quadrant. Food intolerance WBC 13.2 with shift to the left, BUN 25, creatinine 1.06. Abdomen is moderately distended with moderate to severe epigastric and right upper quadrant tenderness. Past Medical Family Social History Allergies: Allergies No Known Drug Allergies Allergy (Verified 08/07/24 14:22) Vital Signs Vital Signs: Vital Signs Temperature 98.2 F Pulse Rate [Right Brachial] 96 Pulse Rate 102 Respiratory Rate 20 Respiratory Rate 20 Respiratory Rate 20 Blood Pressure [Right Arm] 113/66 O2 Sat by Pulse Oximetry 95 O2 Sat by Pulse Oximetry 95 O2 Sat by Pulse Oximetry 96 Physical Exam Oriented: Normal Eyes: Normal Nose: Normal Throat: Dry Cardiovascular: Normal GI:Auscultation: Decreased GI:Palpation: Normal GI: Tenderness: Diffuse and Epigastric Skin: Decreased Turgur Musculoskeletal: Back:Thoracic and Back:Lumbar Psychiatric: Normal Mood Description: Calm Affect: Normal Speech Pattern: Clear and Appropriate Laboratory and Diagnostics 01/07/25 05:13 01/07/25 05:13 Labs: 01/02/25 02:50 Blood Blood Culture - Final 01/02/25 02:43 Blood Blood Culture - Final 01/03/25 17:30 Sputum - Expectorated Sputum Sputum Culture - Final 01/03/25 17:30 Sputum - Expectorated Sputum - Final 01/02/25 11:30 Urine,Clean Catch Urine Culture - Final Laboratory WBC 13.2 X10^3/uL (3.6-10.0) H 01/07/25 05:13 RBC 4.38 X10^6/uL (4.7-6.0) L 01/07/25 05:13 Hgb 12.0 g/dL (13.5-18.0) L 01/07/25 05:13 Hct 36.6 % (42.0-54.0) L 01/07/25 05:13 MCV 83.5 fL (80.0-100.0) 01/07/25 05:13 MCH 27.4 pg (27.0-34.0) 01/07/25 05:13 MCHC 32.8 g/dL (33.0-35.0) L 01/07/25 05:13 RDW 17.4 % (11.6-16.5) H 01/07/25 05:13 Plt Count 131 X10^3/uL (150.0-450.0) L 01/07/25 05:13 Plt Count Comment Decreased (ADEQUATE) 01/06/25 05:20 MPV 9.5 fL (7.4-11.0) 01/07/25 05:13 Neut % (Auto) 89.1 % (42.0-75.0) H 01/07/25 05:13 Lymph % (Auto) 2.6 % (21.0-51.0) L 01/07/25 05:13 [place] % (Auto) 7.9 % (0.0-13.0) 01/07/25 05:13 Eos % (Auto) 0.1 % (0.9-2.9) L 01/07/25 05:13 Baso % (Auto) 0.3 % (0.2-1.0) 01/07/25 05:13 Neut # (Auto) 11.8 x10^3/uL (2.2-4.8) H 01/07/25 05:13 Lymph # (Auto) 0.3 X10^3/uL (1.3-2.9) L 01/07/25 05:13 [place] # (Auto) 1.0 x10^3/uL (0.3-0.8) H 01/07/25 05:13 Eos # (Auto) 0.0 x10^3/uL (0.0-0.2) 01/07/25 05:13 Baso # (Auto) 0.0 X10^3/uL (0.0-0.1) 01/07/25 05:13 Absolute Nucleated RBC 0.0 /100WBC 01/07/25 05:13 Total Counted 100 01/06/25 05:20 Neutrophils % (Manual) 90 % (39-76) H 01/06/25 05:20 Band Neutrophils % 6 % (0-10) 01/06/25 05:20 Lymphocytes % (Manual) 2 % (13-43) L 01/06/25 05:20 Monocytes % (Manual) 2 % (4-9) L 01/06/25 05:20 Plt Morphology Comment Normal (NORMAL) 01/06/25 05:20 RBC Morphology Normal (NORMAL) 01/06/25 05:20 Anisocytosis Slight A 01/05/25 04:21 D-Dimer 1.73 ug/ml (0.0-0.57) H 01/01/25 21:40 Sodium 140 mmol/L (136-145) 01/07/25 05:13 Corrected Sodium 141 mmol/L (136-145) 01/07/25 05:13 Potassium 4.2 mmol/L (3.5-5.1) 01/07/25 05:13 Chloride 102 mmol/L (98-107) 01/07/25 05:13 Carbon Dioxide 32.7 mmol/L (21-32) H 01/07/25 05:13 BUN 25 mg/dL (7-18) H 01/07/25 05:13 Creatinine 1.06 mg/dL (0.70-1.30) 01/07/25 05:13 Est GFR (MDRD) Af Amer > 60 (>60) 01/07/25 05:13 Est GFR (MDRD) Non-Af > 60 (>60) 01/07/25 05:13 Glucose 127 mg/dL (65-99) H 01/07/25 05:13 POC Glucose (mg/dL) 139 mg/dL (65-99) H 01/07/25 11:35 Lactic Acid 1.8 mmol/L (0.4-2.0) 01/02/25 09:25 Calcium 10.0 mg/dL (8.5-10.1) 01/07/25 05:13 Corrected Calcium 11.3 mg/dL (8.5-10.1) H 01/07/25 05:13 Magnesium 2.0 mg/dL (2.0-2.9) 01/06/25 05:20 Total Bilirubin 0.70 mg/dL (0.2-1.0) 01/07/25 05:13 AST 13 Units/L (15-37) L 01/07/25 05:13 ALT 13 Units/L (12-78) 01/07/25 05:13 Alkaline Phosphatase 84 Units/L (46-116) 01/07/25 05:13 Creatine Kinase 64 Units/L (39-308) 01/01/25 21:40 Troponin I High Sens 12.2 ng/L (4.0-60.0) 01/02/25 00:18 B-Natriuretic Peptide 457 pg/mL (0-79) H 01/01/25 21:40 Total Protein 5.8 g/dL (6.4-8.2) L 01/07/25 05:13 Albumin 2.4 g/dL (3.4-5.0) L 01/07/25 05:13 Globulin 3.4 g/dL (2.5-4.5) 01/07/25 05:13 Albumin/Globulin Ratio 0.7 Ratio (1.1-2.1) L 01/07/25 05:13 Amylase 18 Units/L (25-115) L 01/06/25 05:20 Lipase 22 Units/L (16-77) 01/06/25 05:20 Specimen Type Clean catch urine 01/01/25 22:05 Urine Color Pale yellow (YELLOW) 01/01/25 22:05 Urine Appearance Clear (CLEAR) 01/01/25 22:05 Urine pH 6.5 (5.0 - 8.0) 01/01/25 22:05 Ur Specific [place] 1.010 (1.000-1.030) 01/01/25 22:05 Urine Protein 2+ (NEGATIVE) 01/01/25 22:05 Urine Glucose (UA) 3+ (NEGATIVE) 01/01/25 22: Urine Ketones Negative (NEGATIVE) 01/01/25 22:05 Urine Blood 3+ (NEGATIVE) 01/01/25 22:05 Urine Nitrite Negative (NEGATIVE) 01/01/25 22: Urine Bilirubin Negative (NEGATIVE) 01/01/25 22:05 Urine Urobilinogen Normal (NORMAL) 01/01/25 22:05 Ur Leukocyte Esterase Negative (NEGATIVE) 01/01/25 22:05 Urine RBC 0-2 /HPF (0-3) 01/01/25 22:05 Urine WBC None seen /HPF (0-5) 01/01/25 22:05 Ur Squamous Epith Cells Rare /HPF (NEGATIVE) 01/01/25 22:05 Urine Bacteria Negative /HPF (NEGATIVE) 01/01/25 22:05 Ur Culture Indicated? No/not indicated 01/01/25 22:05 Stl Occult Blood (IFOB) Positive (NEGATIVE) A 01/02/25 15:30 Resp Viral Panel (PCR) See scanned report 01/02/25 04:00 Assessment and Plan 1: Acute calculus cholecystitis. Same treatment plan for now with IV fluid and IV antibiotics 2: Pneumonia 3: Congestive heart failure and A-fib. Problem Patient Problems: Patient Problems (Updated 01/02/25 @ 08:29 by Zee Vann) Acute exacerbation of CHF (congestive heart failure) (Acute) I50.9 Bilateral pneumonia (Acute) J18.9
[2025-01-07] MEDS: HEPARIN SODIUM INJ 5000 UNITS SC SCH (20:12)
[2025-01-08 05:46] LABS: BASOPHILS % (AUTO) 0.4 % (0.2-1.0); EOSINOPHILS % (AUTO) 0.3 % (0.9-2.9); HEMATOCRIT 38.3 % (42.0-54.0); HEMOGLOBIN 12.7 g/dL (13.5-18.0); LYMPHOCYTES # (AUTO) 0.5 X10^3/uL (1.3-2.9); LYMPHOCYTES % (AUTO) 4.3 % (21.0-51.0); MEAN CORPUSCULAR HEMOGLOBIN 27.4 pg (27.0-34.0); MEAN CORPUSCULAR VOLUME 82.9 fL (80.0-100.0); MEAN PLATELET VOLUME 9.1 fL (7.4-11.0); MONOCYTES # (AUTO) 0.9 x10^3/uL (0.3-0.8); MONOCYTES % (AUTO) 7.5 % (0.0-13.0); NEUTROPHILS # (AUTO) 10.2 x10^3/uL (2.2-4.8); NEUTROPHILS % (AUTO) 87.5 % (42.0-75.0); PLATELET COUNT 150 X10^3/uL (150.0-450.0); RED BLOOD COUNT 4.62 X10^6/uL (4.7-6.0); RED CELL DISTRIBUTION WIDTH 17.7 % (11.6-16.5); WHITE BLOOD COUNT 11.6 X10^3/uL (3.6-10.0)
[2025-01-08 05:58] LABS: ALANINE AMINOTRANSFERASE 11 Units/L (12-78); ALBUMIN 2.4 g/dL (3.4-5.0); ALKALINE PHOSPHATASE 84 Units/L (46-116); ASPARTATE AMINO TRANSFERASE 13 Units/L (15-37); BLOOD UREA NITROGEN 27 mg/dL (7-18); CALCIUM 9.8 mg/dL (8.5-10.1); CARBON DIOXIDE 34.8 mmol/L (21-32); CHLORIDE 101 mmol/L (98-107); COR CA(FOR HYPOALB) 11.1 mg/dL (8.5-10.1); COR NA(FOR HYPERGLY) 140 mmol/L (136-145); CREATININE 1.16 mg/dL (0.70-1.30); GLUCOSE 126 mg/dL (65-99); POTASSIUM 3.9 mmol/L (3.5-5.1); SODIUM 139 mmol/L (136-145); TOTAL PROTEIN 5.7 g/dL (6.4-8.2); eGFR NON BLACK RACES > 60 (>60)
[2025-01-08 08:41] VITALS: O2SAT 95
[2025-01-08 08:56] LABS: INR 2.19 (0.8-1.3)
[2025-01-08] MEDS ORDERED: HEPARIN SODIUM IN D5W 25,000 UNITS/500 ML BAG IV PRN (10:27)
[2025-01-08] MEDS: HEPARIN SODIUM INJ 5000 UNITS IVP ONE (11:48)
[2025-01-08] MEDS: HEPARIN SODIUM IN D5W 25,000 UNITS/500 ML BAG IV PRN (11:58)
[2025-01-08 15:09] VITALS: BP 103/58; PULSE 87; TEMP 99
[2025-01-08 15:49] VITALS: RESP 20
[2025-01-08] MEDS ORDERED: ARTIFICIAL TEARS DROPS AFFEYE SCH (21:00)
== END 2025-01-08 16:30 | disposition short-term general hospital (02) | DRG 194 ==
LOC: ER 21:17 → MED/SURG 01-02 02:33 → ICU 01-08 10:45
PROVIDERS: ADMIT Internal Medicine; ATTEND Internal Medicine

== ENCOUNTER 2025-06-11 16:26 | Inpatient (IN) ==
[2025-06-11 17:56] LABS: MEAN PLATELET VOLUME 8.7 fL (7.4-11.0); RED CELL DISTRIBUTION WIDTH 17.5 % (11.6-16.5)
--- NOTE | 2025-06-11 18:10 | EKG ---
Test Reason : chf Blood Pressure : */* mmHG Vent. Rate : 112 BPM Atrial Rate : * BPM P-R Int : * ms QRS Dur : 126 ms QT Int : 360 ms P-R-T Axes : * 82 -17 degrees QTc Int : 491 ms Atrial fibrillation with rapid ventricular response Right bundle branch block T wave abnormality, consider lateral ischemia Abnormal ECG When compared with ECG of 25-FEB-2025 18:11, T wave inversion more evident in Anterolateral leads Confirmed by Simon Marley MD ([id number]) on 06/11/2025 6:23:00 PM Referred By: Confirmed By: Simon Marley MD
[2025-06-11 18:12] LABS: COR NA(FOR HYPERGLY) 144 mmol/L (136-145); CREATININE 1.42 mg/dL (0.70-1.30); eGFR NON BLACK RACES 51 (>60)
[2025-06-11 18:17] VITALS: BMI 27.7
[2025-06-11] MEDS: NS 500 ML IV 500 ML IV SCH (18:20)
[2025-06-11] MEDS: K-DUR TAB 20 MEQ PO SCH (20:52)
[2025-06-11] MEDS: TOPROL XL PO SCH (20:53)
[2025-06-11] MEDS: NORCO 10/325 TAB PO PRN (20:58)
[2025-06-11] MEDS ORDERED: TERAZOSIN 2 MG PO SCH (21:00)
[2025-06-11] MEDS: HYTRIN PO SCH (22:50)
[2025-06-12] MEDS: DUONEB 0.5 MG/3 MG (3 mL) NEB PRN (00:06)
--- NOTE | 2025-06-12 04:27 | EKG ---
Test Reason : Tachycardia Blood Pressure : */* mmHG Vent. Rate : 120 BPM Atrial Rate : * BPM P-R Int : * ms QRS Dur : 116 ms QT Int : 340 ms P-R-T Axes : * 109 -36 degrees QTc Int : 480 ms Atrial fibrillation with rapid ventricular response Low voltage QRS Right bundle branch block Abnormal ECG When compared with ECG of 11-JUN-2025 18:09, No significant change was found Confirmed by Simon Marley MD ([id number]) on 06/12/2025 6:15:10 AM Referred By: Confirmed By: Simon Marley MD
[2025-06-12] MEDS ORDERED: XOPENEX 1.25 MG/3 ML NEBULE NEB PRN (04:33)
[2025-06-12] MEDS: LOPRESSOR INJ 5 MG AMP IVP ONE ×2 (05:18→07:48)
[2025-06-12 06:43] LABS: MEAN PLATELET VOLUME 8.9 fL (7.4-11.0); RED CELL DISTRIBUTION WIDTH 17.4 % (11.6-16.5)
[2025-06-12 06:59] LABS: CREATININE 1.30 mg/dL (0.70-1.30); eGFR NON BLACK RACES 56 (>60)
[2025-06-12] MEDS: XOPENEX 1.25 MG/3 ML NEBULE NEB PRN (07:00)
--- NOTE | 2025-06-12 07:49 | RAD ---
EXAM: CHEST, PA/LAT ADULT HISTORY: chf; COMPARISON: No relevant prior studies were available for comparison at the time of interpretation. TECHNIQUE: CHEST, PA/LAT ADULT FINDINGS: Chest: Lines and tubes: Cardiac leads overlie the chest. Mediastinum: Cardiomegaly. Pulmonary vessels: There is pulmonary vascular congestion. Lung briones: Patchy opacities are seen Pleura: Bilateral pleural effusions, left larger than right Bones and soft tissues: No acute osseous or soft tissue abnormality. IMPRESSION: 1. [id number] bilateral pleural effusions 2. Increased volume status suggested THIS IS AN ELECTRONICALLY VERIFIED FINAL REPORT 06/12/2025 7:46 AM - Electronically signed by Sadiq Almanzar MD
--- NOTE | 2025-06-12 08:16 | DR.H&P ---
H&P History & Physical for Day of: H&P Date: 06/11/25 Chief Complaint Chief Complaint: SOB History of Present Illness History of Present Illness: PT IS 80 WM, DIRECT ADMIT WITH BILATERAL LARGE PLEURAL EFFUSIONS ON OUTPT CT, CO SEVERE INCREASED SOB. PT REPORTS "I FEEL LIKE I HAVE PNEUMONIA" PT HAD CT OF ABD/PELVIS DUE TO CO ABDOMEN FEELS DISTENDED AND POOR APPETITE. PT HAD COMPLIATED CHOLECYSTECTOMY ~ [address] REVEALED EFFUSIONS. PT HAS PMH OF CAD, DM, HTN, HX WATCHMAN FOR AFIB, CHRONIC AFIB. PT ADMITTED FOR TREATMENT AND EVAUATION OF ACUTE ILLNESS Past Medical History Past Medical History: CHF, Coronary Artery Disease, Diabetes, Dyslipidemia, Hypertension and [place] Past Surgical History Surgical History: Angioplasty/Stents, Cholecystectomy and Ortho Surgery Family History Family Medical History: [place], Coronary Artery Disease, Sudden Cardiac and Hypertension Medications Home Medications: Home Medications Medication Instructions Recorded Confirmed Type aspirin 81 mg chewable tablet 81 mg PO QDAY 08/01/24 0 01/02/25 History clonidine HCl 0.1 mg tablet 0.1 mg PO DAILY PRN 01/02/25 History apixaban 5 mg tablet (Eliquis) 5 mg PO BID 01/02/25 History aspirin 81 mg tablet,delayed 81 mg PO QDAY 01/02/25 History release atorvastatin 40 mg tablet 40 mg PO QDAY 01/02/2501/02 History donepezil 5 mg tablet 5 mg PO QDAY 01/02/25 History hydrocodone 10 mg-acetaminophen 1 tab PO TID PRN 01/0201/02/25 History 325 mg tablet lisinopril 10 mg tablet 10 mg PO QDAY 01/02/2501/02 History metformin 500 mg tablet 500 mg PO BID 01/02/2501/02 History metoprolol succinate 50 mg 50 mg PO BID 01/02/2501/02 History tablet,extended release 24 hr pantoprazole 40 mg tablet,delayed 40 mg PO QDAY 01/02/25 History release potassium chloride 10 mEq 10 meq PO BID 01/02/2501/02 History tablet,extended release(part/cryst) terazosin 2 mg capsule 4 mg PO QPM 01/02/25 5 History Allergies Allergies Allergy/AdvReac Type Severity Reaction Status Date / Time No Known Drug Allergies Allergy Verified 08/07/24 14:22 Labs 06/12/25 05:46 06/12/25 05:46 Review of Systems Constitutional: Weakness Eyes: No Symptoms Reported ENT: Nose Congestion Respiratory: Cough, Shortness of Breath and Wheezing Cardiovascular: Edema Gastrointestinal: Other (BLOATING) Genitourinary: No Symptoms Reported Musculoskeletal: Back Pain Skin: No Symptoms Reported Neurological: Weakness (WITH EXERTION DUE TO SOB) Oriented: Normal Eyes: Normal Ear: Normal Nose: Discharge Throat: Dry Respiratory: Diminished Throughout Cardiovascular: Normal and Edema Auscultation: Bowel Sounds: Normal Tenderness: Epigastric and Mild Skin: Decreased Turgur Musculoskeletal: Back:Lumbar Psychiatric: Anxiety Mood Description: Anxious Speech Pattern: Clear and Appropriate Assessment/Plan (1) CHF (congestive heart failure): Status: Chronic Plan: BP CONTROL AND CARDIAC MONITORING SUPPLEMENTAL O2, REPEAT AM CXR STRICT I&OS IV LASIX, CONTINUE BB, ROSA ISELA AND STATIN THERAPY SERIAL EKG AND CE (2) Pleural effusion on left: Status: Acute (3) Pleural effusion on right: Status: Acute (4) Bilateral pneumonia: Status: Acute (5) Diabetes: Status: Chronic (6) Atrial fibrillation: Narrative Support Text: HAD WATCHMAN Status: Chronic
[2025-06-12] MEDS: LIPITOR TAB 40 MG PO SCH (08:51)
[2025-06-12] MEDS: ROCEPHIN VIAL 1 GRAM 1 G in NS 100 ML IV 100 ML IV SCH (08:51)
[2025-06-12] MEDS: ZESTRIL TAB 5 MG PO SCH (08:51)
[2025-06-12] MEDS: LASIX IVP SCH ×2 (08:51→09:15)
[2025-06-12 09:09] LABS: ABG BASE EXCESS 5.4 mmol/L (-2.0-2.0); ABG HCO3 31.1 mmol/L (22-26); ABG OXYGEN SATURATION 88.0 % (90-100); ABG PCO2 49.0 mmHg (35.0-45.0); ABG PH 7.410 (7.35-7.45); ABG PO2 55.0 mmHg (80.0-100.0)
[2025-06-12] MEDS: XYLOCAINE JELLY TOP ONE (09:10)
--- NOTE | 2025-06-12 13:45 | RAD ---
EXAM: KUB HISTORY: BLADDER DISTENDE ; COMPARISON: CT dated 06/10/2025 TECHNIQUE: AP abdomen, supine FINDINGS: No abnormally distended bowel loops. No significant colonic stool burden. Left flank coarse calcifications are again noted. IMPRESSION: No acute findings. THIS IS AN ELECTRONICALLY VERIFIED FINAL REPORT 06/12/2025 1:42 PM - Electronically signed by Devin Bowden MD
[2025-06-12] MEDS: MORPHINE SULFATE INJ 2 MG INJ IVP ONE (13:47)
[2025-06-12 14:10] LABS: BLOOD/HEMOGLOBIN,URINE 2+ (NEGATIVE); LEUKOCYTE ESTERASE ,URINE NEGATIVE (NEGATIVE); NITRITES,URINE NEGATIVE (NEGATIVE)
[2025-06-12 14:18] LABS: APPEARANCE,URINE CLEAR (CLEAR); SQUAMOUS EPITHELIAL CELL,UR RARE /HPF (NEGATIVE)
[2025-06-12] MEDS: OMNIPAQUE 350 mg/mL 100 mL BTL 100 ML ONE (14:23)
[2025-06-12] MEDS: PHARMACY CONSULT XX SCH (14:24)
--- NOTE | 2025-06-12 16:13 | CT ---
EXAMINATION: CTA, CHEST HISTORY: CHF, ELEVATED D DIMER; COMPARISON: None. TECHNIQUE: Contiguous axial CT images of the thorax following intravenous contrast. Images reviewed in the axial imaging plane with post processing thick slab MIP/3D volume images at a workstation.The above CT scan was done with automated exposure control and the mA and kV was adjusted to obtain quality images a ccording to patient size. FINDINGS: The lungs are expanded. Large bilateral low-density pleural effusions in the dependent posterior pleural spaces. There are compressive atelectatic changes of the adjacent lower lobes of the chest. Central airways are patent. [id number]-ef-vdeslvdq multichamber cardiac enlargement. Coronary artery calcifications. There is relative enlargement of the right side of the heart with reflux of contrast into the IVC and hepatic veins consistent with right- sided cardiac dysfunction. Mild pericardial effusion. Enlarged main pulmonary outflow trunk 3.2 cm diameter. No evidence of thrombus within the pulmonary arteries. Slight fusiform shaped ectasia ascending thoracic aorta 3.7 cm diameter. Scattered arterial vascular calcifications aorta and branch vessels. No mediastinal or hilar adenopathy. [id number] thoracic spondylosis. IMPRESSION: Large bilateral low-density pleural effusions. Cardiomegaly, coronary artery calcifications. Relative enlargement of the right side of the heart with reflux of contrast into the IVC and hepatic veins consistent with right-sided cardiac dysfunction. No evidence of thrombus within the pulmonary arteries. THIS IS AN ELECTRONICALLY VERIFIED FINAL REPORT 06/12/2025 4:10 PM - Electronically signed by Li Pastrana MD
[2025-06-12] MEDS: REMERON PO SCH (20:01)
[2025-06-12] MEDS: MELATONIN PO SCH (20:01)
[2025-06-12] MEDS: NYSTATIN POWDER TOP SCH (20:54)
[2025-06-13 05:51] LABS: MEAN PLATELET VOLUME 9.4 fL (7.4-11.0); RED CELL DISTRIBUTION WIDTH 17.1 % (11.6-16.5)
[2025-06-13 06:06] LABS: COR CA(FOR HYPOALB) 10.1 mg/dL (8.5-10.1); CREATININE 1.19 mg/dL (0.70-1.30); eGFR NON BLACK RACES > 60 (>60)
[2025-06-13] MEDS: ALBUMIN HUMAN 25%- 100 ML 100 ML IV SCH (08:33)
[2025-06-13] MEDS: ELIQUIS PO SCH (08:37)
[2025-06-13] MEDS: KLOR-CON 10 MEQ TAB PO SCH (08:37)
[2025-06-13] MEDS: ASPIRIN EC 81 MG PO SCH (08:47)
[2025-06-13] MEDS: PROTONIX TAB 40 MG PO SCH (08:47)
[2025-06-13] MEDS: TOPROL XL PO SCH (08:47)
[2025-06-13] MEDS: TOPROL XL PO ONE (08:52)
[2025-06-13] MEDS ORDERED: ELIQUIS PO SCH (09:00)
[2025-06-13] MEDS ORDERED: LASIX IVP SCH (09:00)
[2025-06-14 05:55] LABS: MEAN PLATELET VOLUME 8.8 fL (7.4-11.0); RED CELL DISTRIBUTION WIDTH 16.9 % (11.6-16.5)
[2025-06-14 06:14] LABS: COR CA(FOR HYPOALB) 9.9 mg/dL (8.5-10.1); CREATININE 1.23 mg/dL (0.70-1.30); eGFR NON BLACK RACES > 60 (>60)
[2025-06-14] MEDS ORDERED: CONSULT PHARMACY - POTASSIUM & MAGNESIUM XX SCH ×2 (07:00)
[2025-06-14] MEDS: MAG-OX TAB PO SCH (09:21)
[2025-06-14] MEDS: K-DUR TAB 20 MEQ PO SCH (10:06)
[2025-06-14] MEDS: MAGNESIUM SULFATE 1 GRAM/100 mL PREMIX 1 G/100 ML BAG IV SCH (11:15)
[2025-06-14] MEDS: NS 250 ML IV 25 ML IV PRN (11:15)
[2025-06-14] MEDS: FLOMAX PO SCH (20:28)
[2025-06-15] MEDS: VISTARIL PO PRN (00:39)
[2025-06-15 05:49] LABS: MEAN PLATELET VOLUME 8.5 fL (7.4-11.0); RED CELL DISTRIBUTION WIDTH 16.5 % (11.6-16.5)
[2025-06-15 06:08] LABS: COR CA(FOR HYPOALB) 9.8 mg/dL (8.5-10.1); COR NA(FOR HYPERGLY) 146 mmol/L (136-145); CREATININE 1.07 mg/dL (0.70-1.30); eGFR NON BLACK RACES > 60 (>60)
--- NOTE | 2025-06-15 06:20 | RAD ---
EXAM: Portable chest HISTORY: Follow-up congestive heart failure COMPARISON: CTA chest 06/12/2025 FINDINGS: Heart is enlarged. Gris are prominent and slightly indistinct. Bilateral moderately large pleural effusions are present [id number]. Left pleural effusion obscures the lung markings in the retrocardiac area of the left lower lobe. No definite acute infiltrates. Bony thorax is unremarkable. IMPRESSION: Cardiomegaly with mild congestive heart failure Bilateral moderately large pleural effusions [id number]-right. The left pleural effusion obscures the lung markings in the retrocardiac area of the left lower lobe. Underlying infiltrate or atelectasis not excluded. THIS IS AN ELECTRONICALLY VERIFIED FINAL REPORT 06/15/2025 6:16 AM - Electronically signed by Zana Villar MD
[2025-06-15 09:24] LABS: ABG BASE EXCESS 15.8 mmol/L (-2.0-2.0); ABG PH 7.410 (7.35-7.45)
[2025-06-15 09:26] LABS: ABG HCO3 43.7 mmol/L (22-26); ABG OXYGEN SATURATION 58.0 % (90-100); ABG PCO2 69.0 mmHg (35.0-45.0); ABG PO2 < 37.0 mmHg (80.0-100.0)
--- NOTE | 2025-06-15 11:21 | RAD ---
EXAM: CHEST, 1 VIEW HISTORY: chf; COMPARISON: No relevant prior studies were available for comparison at the time of interpretation. TECHNIQUE: CHEST, 1 VIEW FINDINGS: Chest: Lines and tubes: Cardiac leads overlie the chest. Mediastinum: Cardiomegaly. Pulmonary vessels: There is pulmonary vascular congestion. Lung briones: Patchy opacities are seen Pleura: Bilateral pleural effusions Bones and soft tissues: No acute osseous or soft tissue abnormality. IMPRESSION: 1. Findings suggest heart failure exacerbation with bilateral pleural effusions THIS IS AN ELECTRONICALLY VERIFIED FINAL REPORT 06/15/2025 11:17 AM - Electronically signed by Sadiq Almanzar MD
[2025-06-15] MEDS: LASIX IVP SCH (13:17)
[2025-06-15] MEDS: MORPHINE SULFATE INJ 2 MG INJ IVP PRN (18:25)
[2025-06-16 05:52] LABS: MEAN PLATELET VOLUME 8.8 fL (7.4-11.0); RED CELL DISTRIBUTION WIDTH 16.7 % (11.6-16.5)
[2025-06-16 06:22] LABS: COR CA(FOR HYPOALB) 9.8 mg/dL (8.5-10.1); COR NA(FOR HYPERGLY) 147 mmol/L (136-145); CREATININE 1.12 mg/dL (0.70-1.30); eGFR NON BLACK RACES > 60 (>60)
[2025-06-16] MEDS: LASIX IVP SCH (08:47)
--- NOTE | 2025-06-16 09:03 | RAD ---
EXAM: Portable chest HISTORY: Pleural effusion COMPARISON: 06/15/2025 FINDINGS: He art remains enlarged. Pulmonary venous congestion is present. No interstitial or alveolar edema identified. Bilateral pleural effusions are present increased on the right and unchanged on the left. Lung markings in the left lower lobe remain obscured. Bony thorax is unremarkable. IMPRESSION: Cardiomegaly with pulmonary venous congestion No interstitial or alveolar edema or visible alveolar infiltrates Bilateral pleural effusions increased some on the right and unchanged on the left. Left pleural effusion continues to obscures the lung markings in the left lower lobe THIS IS AN ELECTRONICALLY VERIFIED FINAL REPORT 06/16/2025 9:00 AM - Electronically signed by Zana Villar MD
[2025-06-17 05:45] LABS: MEAN PLATELET VOLUME 8.8 fL (7.4-11.0); RED CELL DISTRIBUTION WIDTH 16.5 % (11.6-16.5)
[2025-06-17 06:11] LABS: COR CA(FOR HYPOALB) 10.3 mg/dL (8.5-10.1); COR NA(FOR HYPERGLY) 146 mmol/L (136-145); CREATININE 1.27 mg/dL (0.70-1.30); eGFR NON BLACK RACES 58 (>60)
[2025-06-17 08:58] LABS: ABG BASE EXCESS 17.4 mmol/L (-2.0-2.0); ABG PH 7.430 (7.35-7.45)
[2025-06-17 08:59] LABS: ABG PCO2 68.0 mmHg (35.0-45.0); ABG PO2 < 37.0 mmHg (80.0-100.0)
[2025-06-17 09:00] LABS: ABG HCO3 45.1 mmol/L (22-26); ABG OXYGEN SATURATION 60.0 % (90-100)
[2025-06-18 05:55] LABS: MEAN PLATELET VOLUME 8.4 fL (7.4-11.0); RED CELL DISTRIBUTION WIDTH 16.5 % (11.6-16.5)
[2025-06-18 06:15] LABS: COR CA(FOR HYPOALB) 10.4 mg/dL (8.5-10.1); CREATININE 1.11 mg/dL (0.70-1.30); eGFR NON BLACK RACES > 60 (>60)
[2025-06-18] MEDS ORDERED: CONSULT PHARMACY - POTASSIUM & MAGNESIUM XX SCH (07:00)
--- NOTE | 2025-06-18 07:56 | RAD ---
EXAM: CHEST, PA/LAT ADULT HISTORY: CHF, PLERUAL EFFUSION ; CAD, DM, DOPD, ASTHMA, GERD, HTN, KIDNEY STONES, CHF, SLEEP APNEA SX: BHANU, LITHOTRIPSY, ORTHO COMPARISON: Prior study or studies were utilized for comparison during interpretation with the most relevant dated 06/16/2025 TECHNIQUE: CHEST, PA/LAT ADULT FINDINGS: Chest: Lines and tubes: Cardiac leads overlie the chest. Mediastinum: Cardiomegaly. Pulmonary vessels: There is pulmonary vascular congestion. Lung briones: Patchy opacities are seen Pleura: Bilateral pleural effusions Bones and soft tissues: No acute osseous or soft tissue abnormality. IMPRESSION: 1. Findings suggest increased volume status with bilateral pleural effusions and pulmonary edema THIS IS AN ELECTRONICALLY VERIFIED FINAL REPORT 06/18/2025 7:52 AM - Electronically signed by Sadiq Almanzar MD
--- NOTE | 2025-06-18 08:35 | RAD ---
EXAM: CHEST, 1 VIEW HISTORY: SOB; COMPARISON: Prior study or studies were utilized for comparison during interpretation with the most relevant dated TECHNIQUE: CHEST, 1 VIEW FINDINGS: Chest: Lines and tubes: Cardiac leads overlie the chest. Mediastinum: Cardiomegaly. Pulmonary vessels: There is pulmonary vascular congestion. Lung briones: Patchy opacities are seen Pleura: Bilateral pleural effusions Bones and soft tissues: No acute osseous or soft tissue abnormality. IMPRESSION: 1. Pneumonia versus heart failure with bilateral pleural effusions THIS IS AN ELECTRONICALLY VERIFIED FINAL REPORT 06/18/2025 8:32 AM - Electronically signed by Sadiq Almanzar MD
[2025-06-18] MEDS: ROBITUSSIN DM PO SCH (09:05)
[2025-06-18] MEDS: PULMICORT NEB TX 0.5 MG NEB SCH (09:17)
--- NOTE | 2025-06-18 11:14 | CT ---
EXAM: CT CHEST WITHOUT IV CONTRAST HISTORY: chf, sob; COMPARISON: Chest x-ray dated 06/18/[address] dated 06/12/2025. TECHNIQUE: Axial CT images were obtained through the chest without IV contrast. Coronal and sagittal reformatted images were included. All CT scans at this facility use dose modulation, iterative reconstruction, and/or weight based dosing when appropriate to reduce radiation dose to as low as reasonably achievable. FINDINGS: Normal caliber thoracic aorta. Unchanged mildly prominent main pulmonary artery. Extensive coronary artery calcifications. Left atrial appendage occlusion device in place. Cardiomegaly. Small to moderate low-density pericardial effusion. Stable small mediastinal lymph nodes. Stable large layering pleural effusions and bibasilar atelectasis. Trachea is midline and central airways are patent. No focal consolidation. No pneumothorax. No acute osseous findings. Thoracic DISH and multilevel degenerative disc disease. No acute findings in the visualized upper abdomen. Stable left renal cysts. IMPRESSION: 1. Stable large layering pleural effusions and associated lung atelectasis. 2. Small to moderate low-density pericardial effusion. Cardiomegaly. THIS IS AN ELECTRONICALLY VERIFIED FINAL REPORT 06/18/2025 11:11 AM - Electronically signed by Devin Bowden MD
[2025-06-18] MEDS: LASIX IVP SCH (13:36)
--- NOTE | 2025-06-18 16:31 | DR.PROGNOT ---
HOSPITAL PROGRESS NOTE Progress Note for Day of: Progress Note Date: 06/18/25 Chief Complaint Chief Complaint: No significant changes in the patient's history, his CAT scan showed moderate bilateral pleural effusion as well as pericardial effusion consistent with the patient congestive heart failure. No changes in his history or physical exam. Past Medical Family Social History Past Med/Fam/Surg Hx: No changes since H&P Allergies: Allergies No Known Drug Allergies Allergy (Verified 08/07/24 14:22) Review Of Systems ROS: No change since H&P Vital Signs Vital Signs: Vital Signs Temperature 97.6 F Pulse Rate 105 Pulse Rate 98 Respiratory Rate 19 Blood Pressure 123/75 O2 Sat by Pulse Oximetry 97 O2 Sat by Pulse Oximetry 94 Physical Exam Oriented: Normal Eyes: Normal Ear: Normal Nose: Discharge Throat: Dry Respiratory: Right, Left and Diminished Cardiovascular: Normal and Edema GI:Auscultation: Normal GI: Tenderness: Epigastric and Mild Skin: Decreased Turgur Musculoskeletal: Back:Lumbar Psychiatric: Anxiety Mood Description: Anxious Speech Pattern: Clear and Appropriate Laboratory and Diagnostics 06/18/25 05:38 06/18/25 05:38 Labs: 06/15/25 08:37 Blood Blood Culture - Preliminary 06/15/25 08:37 Blood Blood Culture - Preliminary 06/15/25 16:00 Urine,Clean Catch Urine Culture - Final Laboratory WBC 4.3 X10^3/uL (3.6-10.0) 06/18/25 05:38 RBC 4.39 X10^6/uL (4.7-6.0) L 06/18/25 05:38 Hgb 11.0 g/dL (13.5-18.0) L 06/18/25 05:38 Hct 34.5 % (42.0-54.0) L 06/18/25 05:38 MCV 78.6 fL (80.0-100.0) L 06/18/25 05:38 MCH 25.0 pg (27.0-34.0) L 06/18/25 05:38 MCHC 31.9 g/dL (33.0-35.0) L 06/18/25 05:38 RDW 16.5 % (11.6-16.5) 06/18/25 05:38 Plt Count 153 X10^3/uL (150.0-450.0) 06/18/25 05:38 MPV 8.4 fL (7.4-11.0) 06/18/25 05:38 Neut % (Auto) 67.4 % (42.0-75.0) 06/18/25 05:38 Lymph % (Auto) 22.1 % (21.0-51.0) 06/18/25 05:38 Elliott % (Auto) 8.0 % (0.0-13.0) 06/18/25 05:38 Eos % (Auto) 1.8 % (0.9-2.9) 06/18/25 05:38 Baso % (Auto) 0.7 % (0.2-1.0) 06/18/25 05:38 Neut # (Auto) 2.9 x10^3/uL (2.2-4.8) 06/18/25 05:38 Lymph # (Auto) 1.0 X10^3/uL (1.3-2.9) L 06/18/25 05:38 Elliott # (Auto) 0.3 x10^3/uL (0.3-0.8) 06/18/25 05:38 Eos # (Auto) 0.1 x10^3/uL (0.0-0.2) 06/18/25 05:38 Baso # (Auto) 0.0 X10^3/uL (0.0-0.1) 06/18/25 05:38 Absolute Nucleated RBC 0.1 /100WBC 06/18/25 05:38 D-Dimer 1.72 ug/ml (0.0-0.57) H 06/12/25 05:46 Sample Site Lb 06/17/25 08:53 ABG pH 7.430 (7.35-7.45) 06/17/25 08:53 ABG pCO2 68.0 mmHg (35.0-45.0) H* 06/17/25 08:53 ABG pO2 < 37.0 mmHg (80.0-100.0) L* 06/17/25 08:53 ABG HCO3 45.1 mmol/L (22-26) H* 06/17/25 08:53 ABG O2 Saturation 60.0 % (90-100) L* 06/17/25 08:53 ABG Base Excess 17.4 mmol/L (-2.0-2.0) H 06/17/25 08:53 Adriel Test N/a 06/17/25 08:53 A-a Gradient 35.0 mmHg 06/17/25 08:53 FiO2 21.0 06/17/25 08:53 Blood Gas Comments Zney well cb 06/17/25 08:53 Sodium 147 mmol/L (136-145) H 06/18/25 05:38 Corrected Sodium TNP 06/18/25 05:38 Potassium 3.7 mmol/L (3.5-5.1) 06/18/25 05:38 Chloride 102 mmol/L (98-107) 06/18/25 05:38 Carbon Dioxide > 45.0 mmol/L (21-32) H* 06/18/25 05:38 BUN 25 mg/dL (7-18) H 06/18/25 05:38 Creatinine 1.11 mg/dL (0.70-1.30) 06/18/25 05:38 Est GFR (MDRD) Af Amer > 60 (>60) 06/18/25 05:38 Est GFR (MDRD) Non-Af > 60 (>60) 06/18/25 05:38 Glucose 94 mg/dL (65-99) 06/18/25 05:38 POC Glucose (mg/dL) 116 mg/dL (65-99) H 06/18/25 11:56 Calcium 9.8 mg/dL (8.5-10.1) 06/18/25 05:38 Corrected Calcium 10.4 mg/dL (8.5-10.1) H 06/18/25 05:38 Magnesium 1.7 mg/dL (2.0-2.9) L 06/18/25 05:38 Total Bilirubin 0.50 mg/dL (0.2-1.0) 06/18/25 05:38 AST 17 Units/L (15-37) 06/18/25 05:38 ALT 15 Units/L (12-78) 06/18/25 05:38 Alkaline Phosphatase 62 Units/L (46-116) 06/18/25 05:38 Creatine Kinase 32 Units/L (39-308) L 06/11/25 17:46 Troponin I High Sens 18.3 ng/L (4.0-60.0) 06/11/25 17:46 B-Natriuretic Peptide 703 pg/mL (0-79) H 06/15/25 05:37 Total Protein 6.3 g/dL (6.4-8.2) L 06/18/25 05:38 Albumin 3.3 g/dL (3.4-5.0) L 06/18/25 05:38 Globulin 3.0 g/dL (2.5-4.5) 06/18/25 05:38 Albumin/Globulin Ratio 1.1 Ratio (1.1-2.1) 06/18/25 05:38 Specimen Type Catherized urine 06/12/25 13:50 Urine Color Straw (YELLOW) 06/12/25 13:50 Urine Appearance Clear (CLEAR) 06/12/25 13:50 Urine pH 6.0 (5.0 - 8.0) 06/12/25 13:50 Ur Specific [place] 1.010 (1.000-1.030) 06/12/25 13:50 Urine Protein Negative (NEGATIVE) 06/12/25 13:50 Urine Glucose (UA) Negative (NEGATIVE) 06/12/25 13:50 Urine Ketones Negative (NEGATIVE) 06/12/25 13:50 Urine Blood 2+ (NEGATIVE) 06/12/25 13:50 Urine Nitrite Negative (NEGATIVE) 06/12/25 13:50 Urine Bilirubin Negative (NEGATIVE) 06/12/25 13:50 Urine Urobilinogen Normal (NORMAL) 06/12/25 13:50 Ur Leukocyte Esterase Negative (NEGATIVE) 06/12/25 13:50 Urine RBC 3-5 /HPF (0-3) A 06/12/25 13:50 Urine WBC 0-2 /HPF (0-5) 06/12/25 13:50 Ur Squamous Epith Cells Rare /HPF (NEGATIVE) 06/12/25 13:50 Urine Bacteria Negative /HPF (NEGATIVE) 06/12/25 13:50 Ur Culture Indicated? No/not indicated 06/12/25 13:50 Assessment and Plan 1: Congestive heart failure 2: Bilateral pleural effusion, seems to be stable. Will observe closely. 3: Pericardial effusion, stable will observe closely.
[2025-06-18] MEDS: K-DUR TAB 20 MEQ PO ONE ×2 (17:33→17:56)
[2025-06-19 05:38] LABS: MEAN PLATELET VOLUME 8.1 fL (7.4-11.0); RED CELL DISTRIBUTION WIDTH 16.5 % (11.6-16.5)
[2025-06-19 05:51] LABS: COR NA(FOR HYPERGLY) 146 mmol/L (136-145); CREATININE 1.00 mg/dL (0.70-1.30); eGFR NON BLACK RACES > 60 (>60)
[2025-06-19] MEDS ORDERED: CONSULT PHARMACY - POTASSIUM & MAGNESIUM XX SCH (06:00)
--- NOTE | 2025-06-19 07:11 | RAD ---
EXAM: CHEST, 1 VIEW HISTORY: PNA, CHF; COMPARISON: 06/18/2025 FINDINGS: The cardiomediastinal silhouette is stable. Similar bibasilar pleural-parenchymal opacities. No pneumothorax. No acute osseous abnormality. IMPRESSION: Similar bibasilar opacities. THIS IS AN ELECTRONICALLY VERIFIED FINAL REPORT 06/19/2025 7:08 AM - Electronically signed by Zana Villar MD
[2025-06-19] MEDS: MAG-OX TAB PO SCH (08:26)
[2025-06-19] MEDS: K-DUR TAB 20 MEQ PO SCH (10:44)
--- NOTE | 2025-06-19 12:00 | RAD ---
EXAM: CHEST, 1 VIEW HISTORY: S/P THORACENTESIS; COMPARISON: Earlier same day FINDINGS: The cardiomediastinal silhouette is stable. Similar bilateral opacities. No pneumothorax. No acute osseous abnormality. IMPRESSION: No pneumothorax post thoracentesis. THIS IS AN ELECTRONICALLY VERIFIED FINAL REPORT 06/19/2025 11:57 AM - Electronically signed by Zana Villar MD
--- NOTE | 2025-06-19 16:02 | NOTE.SOAP ---
Soap Note Note for Day of Date of Exam: 06/19/25 Subjective Data Subjective Data: Patient reports feeling better today than yesterday but still not at baseline. Cough seems to be improving. Appetite still poor. No acute events overnight. Stable anemia with mild thrombocytopenia. CO2 high on BMP. Objective Data Objective Data: Well-developed, well-nourished, elderly male in no acute distress. Lungs diminished at bases. Heart regular rate and rhythm. Mood and affect are appropriate. Assessment Assessment: b/l Pleural effusions chronic diastoic CHF exacerbation acute hypoxemic respiratory failure h/o Afib DM2 Plan Plan: Appreciate surgery input. Continue to monitor for now. Incentive spirometry and out of bed encouraged.
[2025-06-20 04:52] LABS: MEAN PLATELET VOLUME 8.3 fL (7.4-11.0); RED CELL DISTRIBUTION WIDTH 16.5 % (11.6-16.5)
[2025-06-20 05:04] LABS: COR CA(FOR HYPOALB) 10.3 mg/dL (8.5-10.1); CREATININE 0.96 mg/dL (0.70-1.30); eGFR NON BLACK RACES > 60 (>60)
--- NOTE | 2025-06-20 11:56 | NOTE.SOAP ---
Soap Note Note for Day of Date of Exam: 06/20/25 Subjective Data Subjective Data: Approximately 1500 mL out with a left thoracentesis yesterday by surgery. Bicarb on the way down. Patient does report breathing easier. Slept better last night. Has been using incentive spirometry more. Still requiring O2 supplementation. Objective Data Objective Data: Well-developed, well-nourished, elderly male in no acute distress. Heart regular rate and rhythm. Bilateral bases are still diminished but improved aeration throughout the lung briones. Mood and affect are appropriate. Assessment Assessment: 1. Acute hypoxemic respiratory failure. 2. Acute on chronic diastolic CHF exacerbation. 3. Bilateral pleural effusions. 4. Atrial fibrillation. Plan Plan: Continue O2 supplementation. Out of bed as tolerated. Incentive spirometry. Repeat chest x-ray and labs tomorrow. Monitor closely.
[2025-06-21 05:20] LABS: MEAN PLATELET VOLUME 8.6 fL (7.4-11.0); RED CELL DISTRIBUTION WIDTH 16.8 % (11.6-16.5)
[2025-06-21 05:28] LABS: COR CA(FOR HYPOALB) 10.5 mg/dL (8.5-10.1); COR NA(FOR HYPERGLY) 147 mmol/L (136-145); CREATININE 0.99 mg/dL (0.70-1.30); eGFR NON BLACK RACES > 60 (>60)
[2025-06-21] MEDS ORDERED: CONSULT PHARMACY - POTASSIUM & MAGNESIUM XX SCH (06:00)
--- NOTE | 2025-06-21 07:49 | RAD ---
EXAM: CHEST, 1 VIEW HISTORY: CHF, pneumonia; COMPARISON: 06/19/2025 TECHNIQUE: .br.br.br.br by AP technique. Layering pleural effusions and bibasilar opacities are similar to comparison. No evidence of pneumothorax. IMPRESSION: Stable layering pleural effusions and bibasilar atelectasis/infiltrates. THIS IS AN ELECTRONICALLY VERIFIED FINAL REPORT 06/21/2025 7:45 AM - Electronically signed by Devin Bowden MD
[2025-06-21] MEDS: MAG-OX TAB PO SCH (08:56)
[2025-06-21] MEDS: K-DUR TAB 20 MEQ PO SCH (11:29)
--- NOTE | 2025-06-21 16:06 | NOTE.SOAP ---
Soap Note Note for Day of Date of Exam: 06/21/25 Subjective Data Subjective Data: Patient reports he feels better today than yesterday. Chest x-ray consistent with post thoracentesis changes. Labs overall stable with bicarb greater than 45, again. No acute events overnight per staff. Objective Data Objective Data: Elderly male in no acute distress. Hearing intact conversation. Heart irregularly, irregular. Lungs diminished at the bases and coarse throughout otherwise. Bowel sounds are present and belly is soft, nontender. Mood and affect appropriate. Assessment Assessment: 1. Acute hypoxemic respiratory failure. 2. Acute on chronic diastolic CHF exacerbation. 3. Bilateral pleural effusions. 4. Atrial fibrillation. Plan Plan: Continue current medications. Continue diuresis. Out of bed.
[2025-06-22 05:08] LABS: MEAN PLATELET VOLUME 9.0 fL (7.4-11.0); RED CELL DISTRIBUTION WIDTH 16.4 % (11.6-16.5)
[2025-06-22 05:16] LABS: COR CA(FOR HYPOALB) 10.4 mg/dL (8.5-10.1); CREATININE 1.03 mg/dL (0.70-1.30); eGFR NON BLACK RACES > 60 (>60)
--- NOTE | 2025-06-22 09:44 | RAD ---
EXAMINATION: CHEST, 1 VIEW HISTORY: pleural effussion; . COMPARISON STUDY: Chest x-ray 06/21/2025 TECHNIQUE: Single AP view of the chest FINDINGS: Persistent dense opacities obscuring the lower lung briones. [id number] cardiac silhouette enlargement. Normal pulmonary vascular pattern. Bones are intact IMPRESSION: Persistent dense opacities obscuring the lower lung briones. Cardiac silhouette enlargement. THIS IS AN ELECTRONICALLY VERIFIED FINAL REPORT 06/22/2025 9:41 AM - Electronically signed by Li Pastrana MD
[2025-06-22] MEDS: ZAROXOLYN PO SCH (12:08)
--- NOTE | 2025-06-22 18:14 | NOTE.SOAP ---
Soap Note Note for Day of Date of Exam: 06/22/25 Subjective Data Subjective Data: Bicarb still high. Patient reports he feels better today. No acute events overnight. Telemetry still shows atrial fibrillation. Objective Data Objective Data: Elderly male in no acute distress. Hearing grossly intact. Heart irregularly, irregular. Left lower lobe less diminished than yesterday. Right lower lobe still dull. Assessment Assessment: 1. Acute hypoxemic respiratory failure. 2. Acute on chronic diastolic CHF exacerbation. 3. Bilateral pleural effusions. 4. Atrial fibrillation. Plan Plan: Abdomen Zaroxolyn p.o. continue incentive spirometry, other deep breathing, and out of bed as tolerated
[2025-06-23 04:58] LABS: MEAN PLATELET VOLUME 8.9 fL (7.4-11.0); RED CELL DISTRIBUTION WIDTH 16.9 % (11.6-16.5)
[2025-06-23 05:08] LABS: COR CA(FOR HYPOALB) 10.7 mg/dL (8.5-10.1); CREATININE 1.02 mg/dL (0.70-1.30); eGFR NON BLACK RACES > 60 (>60)
[2025-06-23] MEDS ORDERED: CONSULT PHARMACY - POTASSIUM & MAGNESIUM XX SCH ×2 (07:00→08:00)
[2025-06-23] MEDS: LASIX IVP SCH (08:11)
[2025-06-23] MEDS: DULCOLAX SUPPOSITORY 10 MG RECTAL ONE (08:11)
[2025-06-23] MEDS: MAG-OX TAB PO SCH (08:12)
[2025-06-23] MEDS: COLACE CAP 100 MG PO PRN (09:21)
[2025-06-23] MEDS: K-DUR TAB 20 MEQ PO SCH (09:21)
[2025-06-23] MEDS: MILK OF MAGNESIA PO PRN (09:21)
--- NOTE | 2025-06-23 14:30 | RAD ---
EXAM: CHEST 2 VIEWS HISTORY: SOB; COMPARISON: June 22, 2025 TECHNIQUE: Frontal and lateral views of the chest were submitted for interpretation. FINDINGS: The cardiomediastinal silhouette is within normal limits. Lungs show bilateral pleural effusions, [id number]. Visualized bony structures are within normal limits. IMPRESSION: Bilateral pleural effusions, [id number] THIS IS AN ELECTRONICALLY VERIFIED FINAL REPORT 06/23/2025 2:27 PM - Electronically signed by Devin Burnett MD
[2025-06-24 04:49] LABS: MEAN PLATELET VOLUME 8.9 fL (7.4-11.0); RED CELL DISTRIBUTION WIDTH 16.5 % (11.6-16.5)
[2025-06-24 05:02] LABS: COR CA(FOR HYPOALB) 10.5 mg/dL (8.5-10.1); COR NA(FOR HYPERGLY) 142 mmol/L (136-145); CREATININE 1.13 mg/dL (0.70-1.30); eGFR NON BLACK RACES > 60 (>60)
[2025-06-24] MEDS ORDERED: CONSULT PHARMACY - POTASSIUM & MAGNESIUM XX SCH (07:00)
[2025-06-24] MEDS: BACTRIM DS TAB PO SCH (08:58)
[2025-06-24] MEDS: K-DUR TAB 20 MEQ PO SCH (10:29)
--- NOTE | 2025-06-24 11:52 | RAD ---
EXAM: CHEST, 1 VIEW HISTORY: SOB; COMPARISON: No relevant prior studies were available for comparison at the time of interpretation. TECHNIQUE: CHEST, 1 VIEW FINDINGS: Chest: Lines and tubes: None Mediastinum: Cardiomegaly. Pulmonary vessels: There is pulmonary vascular congestion. Lung briones: No suspicious airspace opacity. Pleura: Bilateral pleural effusions Bones and soft tissues: No acute osseous or soft tissue abnormality. IMPRESSION: 1. Findings suggest heart failure exacerbation versus pneumonia THIS IS AN ELECTRONICALLY VERIFIED FINAL REPORT 06/24/2025 11:49 AM - Electronically signed by Sadiq Almanzar MD
[2025-06-24 12:08] VITALS: TEMP 98.5
[2025-06-24 16:40] VITALS: BP 104/72; PULSE 80; RESP 18; O2SAT 98
== END 2025-06-24 17:05 | disposition home health service (06) | DRG 291 ==
LOC: MED/SURG → OBSVTOIN 17:12 → ICU 06-12 15:03 → MED/SURG 06-13 18:36
PROVIDERS: ADMIT Internal Medicine; ATTEND Internal Medicine
DX: N40.0 Benign prostatic hyperplasia without lower urinary tract symptoms; I48.91 Unspecified atrial fibrillation; I25.2 Old myocardial infarction; Z16.11 Resistance to penicillins; Z95.818 Presence of other cardiac implants and grafts; E83.42 Hypomagnesemia; R00.0 Tachycardia, unspecified; M19.90 Unspecified osteoarthritis, unspecified site; R06.02 Shortness of breath; R09.02 Hypoxemia; Z16.23 Resistance to quinolones and fluoroquinolones; Z16.19 Resistance to other specified beta lactam antibiotics; K21.9 Gastro-esophageal reflux disease without esophagitis; R94.31 Abnormal electrocardiogram [ECG] [EKG]; R78.81 Bacteremia; Z79.01 Long term (current) use of anticoagulants; Z16.12 Extended spectrum beta lactamase (ESBL) resistance; J18.8 Other pneumonia, unspecified organism; R53.1 Weakness; N39.0 Urinary tract infection, site not specified; I50.33 Acute on chronic diastolic (congestive) heart failure; E11.65 Type 2 diabetes mellitus with hyperglycemia; Z59.86 Financial insecurity; B95.7 Other staphylococcus as the cause of diseases classified elsewhere; N50.89 Other specified disorders of the male genital organs; R79.1 Abnormal coagulation profile; I11.0 Hypertensive heart disease with heart failure; I25.10 Atherosclerotic heart disease of native coronary artery without angina pectoris; J90 Pleural effusion, not elsewhere classified; D64.89 Other specified anemias